=== PATIENT | female | born 1990 | race Caucasian/White ===

== ENCOUNTER 2019-01-21 15:53 | Emergency (ER) | payer MEDICARE, MEDICAID ==
[~2019-01-21] VITALS: Ht 160 cm; Wt 73.6 kg
--- NOTE | 2019-01-21 16:15 | NUR ---
Pt arrives via EMS from home. She was placed on 5150 by county worker. Father stated she has not been eating or caring for herself lately. States she has suffered from depression since age 15 and is currently scooter leung. Has hx of cystic fibrosis and sees [facility] for management of disease. Pt placed in green scrubs and all personal belongings collected. Pt oriented to room and unit. Pt appears very depressed and only answers questions with one word answers.
[2019-01-21 16:36] LABS: CLARITY,URINE TURBID (Clear); COLOR,URINE YELLOW (Yellow); GLUCOSE, URINE NEGATIVE (Neg); KETONES,URINE NEGATIVE (Neg); LEUKOCYTE ESTERASE ,URINE NEGATIVE (Neg); NITRITES, URINE NEGATIVE (Neg); OCCULT BLOOD,URINE NEGATIVE (Neg); PH,URINE 5.5 (4.8-8.0); PROTEIN,URINE NEGATIVE (Neg); URINE HCG NEGATIVE (NEG); UROBILINOGEN,URINE 0.2 E.U/dL (0.2-1.0)
[2019-01-21 16:37] LABS: UA COLLECTION TYPE CLN CATCH MIDSTREAM
[2019-01-21 16:44] LABS: URINE AMPHETAMINE SCREEN NEGATIVE (Neg); URINE BARBITUATE SCREEN NEGATIVE (Neg); URINE BENZODIAZEPINES SCREEN NEGATIVE (Neg); URINE CANNABINOID SCREEN NEGATIVE (Neg); URINE COCAINE SCREEN NEGATIVE (Neg); URINE METHADONE SCREEN NEGATIVE (Neg); URINE OPIATE SCREEN NEGATIVE (Neg); URINE PHENCYCLIDINE SCREEN NEGATIVE (Neg)
--- NOTE | 2019-01-21 16:44 | NUR ---
Telepsych called. Pt placed in queue.
[2019-01-21] MEDS ORDERED: CETI-102 PO (16:51)
[2019-01-21] MEDS ORDERED: DOCU-28 PO (16:51)
[2019-01-21] MEDS ORDERED: ALB0.5UD IH (16:51)
[2019-01-21] MEDS ORDERED: DORN1SOL (16:51)
[2019-01-21] MEDS ORDERED: ESCI10TA PO (16:51)
--- NOTE | 2019-01-21 16:51 | NUR ---
Per dry charge process attendantISAAC Huitron, a nurse from IR will be coming down shortly and we will see if they can access pts port.
[2019-01-21 16:57] LABS: MUCUS STRANDS MANY /LPF (Neg); SQUAMOUS EPITHELIAL CELL,UR MANY /LPF (FEW)
[2019-01-21 16:58] LABS: BACTERIA,URINE FEW /HPF (Neg); RBC,URINE 0-2 /HPF (0-2); WBC,URINE 0-4 /HPF (0-4)
[2019-01-21] MEDS ORDERED: LIPA1CAP18 PO (17:12)
[2019-01-21] MEDS ORDERED: [UNRECOGNIZED DRUG - CODE] PO (17:12)
[2019-01-21] MEDS ORDERED: MULT1TAB74 PO (17:12)
[2019-01-21] MEDS ORDERED: MULT-978 PO (17:12)
[2019-01-21] MEDS ORDERED: MIRT15TA PO (17:12)
[2019-01-21] MEDS ORDERED: DORN1SOL NEB (17:28)
--- NOTE | 2019-01-21 18:00 | NUR ---
Pt had her telepsych done.
--- NOTE | 2019-01-21 18:27 | NUR ---
PER LOS DYSON: OK TO DRAW LABS FROM PORT. USING STERILE TECHNIQUE: ONE ATTEMPT TO DRAW BLOOD UNSUCCESSFUL
--- NOTE | 2019-01-21 18:28 | NUR ---
LAB PHONED TO COME UP AND DRAW PATIENT'S LABS
--- NOTE | 2019-01-21 18:33 | NUR ---
Netta Rizo from [facility] in [facility] called stating she was contacted in regards to the patients admittance here at [facility]. States she can be contacted tomorrow at the clinic at [phone]. Her voicemail is HIPPA compliant and information can be left via voicemail. Should there be any immedite needs, we may contact the Professor Of Graphic Design software security consultant at [phone].
[2019-01-21] MEDS ORDERED: albuterol 2.5 mg/0.5ml nebule NEB PRN (18:45)
[2019-01-21] MEDS ORDERED: albuterol 2.5 MG/3 ML nebule NEB PRN (18:55)
[2019-01-21] MEDS ORDERED: AZIT500T5 PO (19:01)
[2019-01-21 19:10] LABS: BASOPHILS % (AUTO) 0.3 % (0-1); EOSINOPHILS # (AUTO) 0.2 X10'3 (0-0.9); EOSINOPHILS % (AUTO) 1.5 % (0-6); HEMATOCRIT 45.1 % (35.0-45.0); HEMOGLOBIN 14.7 g/dl (12.0-16.0); LYMPHOCYTES # (AUTO) 1.5 X10'3 (1.1-4.8); LYMPHOCYTES % (AUTO) 14.2 % (21-51); MEAN CORPUSCULAR HEMOGLOBIN 26.6 PG (27.0-31.0); MEAN CORPUSCULAR HGB CONC 32.7 g/dL (33.0-36.5); MEAN CORPUSCULAR VOLUME 81.4 FL (78-98); MEAN PLATELET VOLUME 7.2 FL (7.4-10.4); MONOCYTES # (AUTO) 0.6 X10'3 (0-0.9); NEUTROPHILS # (AUTO) 8.3 X10'3 (1.8-7.7); PLATELET COUNT 266 X10'3 (140-440); RED BLOOD COUNT 5.55 X10'6 (4.20-5.60); RED CELL DISTRIBUTION WIDTH 15.7 % (11.5-14.5); WHITE BLOOD COUNT 10.6 X10'3 (4.5-11.0)
[2019-01-21 19:11] LABS: ALANINE AMINOTRANSFERASE 64 U/L (12-78); ALBUMIN 3.9 G/DL (3.4-5.0); ALBUMIN/GLOBULIN RATIO 0.9 (1.1-1.5); ALKALINE PHOSPHATASE 198 IU/L (46-116); ANION GAP 9 (8-16); ASPARTATE AMINO TRANSFERASE 33 U/L (10-37); BILIRUBIN,TOTAL 0.3 MG/DL (0.1-1.0); BLOOD UREA NITROGEN 14 MG/DL (7-18); BUN/CREATININE RATIO 21.5 (6.6-38.0); CHLORIDE 103 MMOL/L (99-107); CREATININE 0.65 MG/DL (0.40-0.90); GLUCOSE 80 MG/DL (70-104); POTASSIUM 3.5 MMOL/L (3.5-5.1); SODIUM 139 MMOL/L (135-145); TOTAL CARBON DIOXIDE 27.1 MMOL/L (24-32); TOTAL PROTEIN 8.3 G/DL (6.4-8.2); eGFR > 90 ML/MIN
--- NOTE | 2019-01-21 19:13 | NUR ---
Home medications checked into pharmacy. Patient given plastic mouth piece that she wears at night with plastic pink case for storage from belongings. Patient has a bedside.
[2019-01-21 19:20] LABS: ETHANOL < 0.010 GM/DL (0.0-0.010)
[2019-01-21] MEDS: Lipase/Protease/Amylase (Creon Dr 36,000 Units Capsule) PO SCH (19:30)
[2019-01-21] MEDS: cetirizine 10mg tablet PO SCH (21:15)
[2019-01-21] MEDS: docusate sod 100mg capsule PO SCH (21:15)
[2019-01-21] MEDS: mirtazapine 15mg tablet PO SCH (21:15)
[2019-01-21] MEDS: IVACAFTOR 150 MG PO SCH (21:23)
--- NOTE | 2019-01-21 23:14 | NUR ---
Packet sent to [facility]. Telephone to confirm packet had arrived, but office had closed for the evening.
--- NOTE | 2019-01-22 00:36 | NUR ---
Covering for RN Lunch break: Patient is resting in bed with eyes closed. Resp are even and unlabored. Appearing to sleep comfortably without concerns or issues noted. Will continue to monitor.
[2019-01-22] MEDS: [UNRECOGNIZED DRUG - OTHER] IH SCH (08:00)
[2019-01-22] MEDS ORDERED: non-formulary drug (Multivitamins 1 TAB) PO SCH (08:00)
[2019-01-22] MEDS: IVACAFTOR 150 MG PO SCH ×2 (08:14→20:28)
[2019-01-22] MEDS: docusate sod 100mg capsule PO SCH ×2 (08:14→20:27)
[2019-01-22] MEDS: Lipase/Protease/Amylase (Creon Dr 36,000 Units Capsule) PO SCH ×3 (08:14→17:33)
[2019-01-22] MEDS: multivitamins, therapeutics tablet PO SCH (08:15)
--- NOTE | 2019-01-22 08:23 | NUR ---
Woke up to eat only few bites of breakfast.
--- NOTE | 2019-01-22 12:00 | NUR ---
Spoke to respiratory therapist Edita who stated this hospital does not have the appropriate vest or treatment needed for this pts cystic fibrosis.
--- NOTE | 2019-01-22 14:11 | NUR ---
Encouraged pt to get up and brush her teeth which she did. Warm shower cap given to pt so she could wash her hair, but she refused. Linens changed.
--- NOTE | 2019-01-22 18:16 | NUR ---
Received report from ISAAC Aguirre. Patient resting comfortably. Addendum: 01/22/19 at 1825 by REENA Swati montgomery.
--- NOTE | 2019-01-22 18:24 | NUR ---
Patient resting comfortably
[2019-01-22] MEDS: mirtazapine 15mg tablet PO SCH (20:27)
[2019-01-22] MEDS: cetirizine 10mg tablet PO SCH (20:28)
[2019-01-23 05:58] VITALS: BP 104/76
--- NOTE | 2019-01-23 06:30 | NUR ---
RN recieved report on pt. pt. is sleeping in bed.
[2019-01-23] MEDS: Lipase/Protease/Amylase (Creon Dr 36,000 Units Capsule) PO SCH ×2 (07:55→12:55)
[2019-01-23] MEDS: [UNRECOGNIZED DRUG - OTHER] IH SCH (08:00)
[2019-01-23] MEDS: multivitamins, therapeutics tablet PO SCH (08:10)
[2019-01-23] MEDS: IVACAFTOR 150 MG PO SCH (08:10)
[2019-01-23] MEDS: docusate sod 100mg capsule PO SCH (08:11)
--- NOTE | 2019-01-23 08:30 | NUR ---
Pt. took AM medications and is up for breakfast. Pt. reports she does not want to use her chest compressor after eating because it makes her feel nauseated. Pt. denies SI.
--- NOTE | 2019-01-23 10:30 | NUR ---
RN asked if pt. was ready for her breathing treatment this AM, pt. reports that she is still too full from breakfast. RN spoke with pt.'s father who reports that pt.'s optimal schedule is to have her breathing treatment, then compressor, then eat.
--- NOTE | 2019-01-23 11:30 | NUR ---
Pt. agitated, saying that she overheard staff talking poorly about her. Pt. states she is having a panic attack. RN listened to pt. and did deep breathing with the pt. RN recieved PRN order for Zyprexa 10mg po. Pt. refused medication. Pt. was able to relax on her own.
--- NOTE | 2019-01-23 12:19 | NUR ---
Call placed to Dr. Avila for pulmonary consult.
--- NOTE | 2019-01-23 12:22 | NUR ---
Message left for Dr. Avila
[2019-01-23] MEDS ORDERED: olanzapine 10mg tablet PO SCH (12:25)
--- NOTE | 2019-01-23 13:00 | NUR ---
Pt. recieved her albuterol along with her percussive vest treatment. RN informed by Pharmacy that pt.'s Creon jaison run out after today. RN contacted pt.'s father and informed him of need for medication, father to bring in more medication.
--- NOTE | 2019-01-23 13:53 | NUR ---
Message left for Dr. Bustillos
--- NOTE | 2019-01-23 13:53 | NUR ---
Call placed to Dr. Bustillos
--- NOTE | 2019-01-23 15:00 | NUR ---
Pt. ate 50% of her lunch. RN informed by pt.'s father that her pulmizyme was not discontinued actually and that pt. normally takes it before dinner. RN contacted pharmacy to reschedule pulmizyme for before dinner. Pt. is resting in her bed.
--- NOTE | 2019-01-23 16:52 | NUR ---
Pt. accepted for center for behavioral health by dr. lopes. Transported via [facility] with all her personal posessions with unit staff at this time.
[2019-01-23] MEDS ORDERED: [UNRECOGNIZED DRUG - OTHER] IH SCH (17:00)
[2019-01-23] MEDS ORDERED: MULT-35 PO (22:40)
[2019-01-23] MEDS ORDERED: MULT-978 PO (22:40)
== END 2019-01-23 16:45 ==
LOC: ER 15:55
DX: F32.9 Major depressive disorder, single episode, unspecified (principal); E84.9 Cystic fibrosis, unspecified; Z79.899 Other long term (current) drug therapy
CPT/HCPCS: 36415; 80053; 80305; 80320; 81001; 81025; 84443; 85025; 94640; 94760; 99284; 99285; J7611

== ENCOUNTER 2019-01-23 15:57 | Inpatient (IN) | payer MEDICARE, MEDICAID | END 2019-01-30 17:18 | disposition home or self-care (01) | LOC: ADULT MH 15:57 | DX: R45.851 Suicidal ideations (principal); F32.9 Major depressive disorder, single episode, unspecified ==

== ENCOUNTER 2019-04-22 17:39 | Emergency (ER) | payer MEDICARE, MEDICAID ==
[~2019-04-22] VITALS: Ht 160 cm; Wt 77.0 kg
[~2019-04-22 17:39] MED LIST: ALB0.5UD IH; AZIT500T5 PO; CETI-102 PO; DOCU-28 PO; DORN1SOL NEB; ESCI10TA PO; LIPA1CAP18 PO; MIRT15TA8 PO; MULT-35 PO; MULT-978 PO; MULT1TAB74 PO; TRAZ-251 PO; [UNRECOGNIZED DRUG - CODE] PO
[2019-04-22 20:02] LABS: BASOPHILS # (AUTO) 0.1 X10'3 (0-0.2); BASOPHILS % (AUTO) 0.5 % (0-1); EOSINOPHILS # (AUTO) 0.3 X10'3 (0-0.9); HEMATOCRIT 42.1 % (35.0-45.0); HEMOGLOBIN 14.1 g/dl (12.0-16.0); LYMPHOCYTES # (AUTO) 1.7 X10'3 (1.1-4.8); LYMPHOCYTES % (AUTO) 13.1 % (21-51); MEAN CORPUSCULAR HEMOGLOBIN 26.7 PG (27.0-31.0); MEAN CORPUSCULAR HGB CONC 33.5 g/dL (33.0-36.5); MEAN CORPUSCULAR VOLUME 79.7 FL (78-98); MEAN PLATELET VOLUME 7.1 FL (7.4-10.4); MONOCYTES # (AUTO) 0.9 X10'3 (0-0.9); MONOCYTES % (AUTO) 7.1 % (2-12); NEUTROPHILS # (AUTO) 9.8 X10'3 (1.8-7.7); NEUTROPHILS % (AUTO) 77.3 % (42-75); PLATELET COUNT 279 X10'3 (140-440); RED BLOOD COUNT 5.28 X10'6 (4.20-5.60); RED CELL DISTRIBUTION WIDTH 14.9 % (11.5-14.5); WHITE BLOOD COUNT 12.7 X10'3 (4.5-11.0)
[2019-04-22 20:12] LABS: ALANINE AMINOTRANSFERASE 35 U/L (12-78); ALBUMIN 3.9 G/DL (3.4-5.0); ALBUMIN/GLOBULIN RATIO 0.9 (1.1-1.5); ALKALINE PHOSPHATASE 190 IU/L (46-116); ANION GAP 7 (8-16); ASPARTATE AMINO TRANSFERASE 19 U/L (10-37); BILIRUBIN,TOTAL 0.4 MG/DL (0.1-1.0); BLOOD UREA NITROGEN 15 MG/DL (7-18); BUN/CREATININE RATIO 23.8 (6.6-38.0); CALCIUM 8.9 MG/DL (8.5-10.1); CHLORIDE 103 MMOL/L (99-107); CREATININE 0.63 MG/DL (0.40-0.90); GLUCOSE 79 MG/DL (70-104); POTASSIUM 3.8 MMOL/L (3.5-5.1); SODIUM 138 MMOL/L (135-145); TOTAL CARBON DIOXIDE 27.6 MMOL/L (24-32); TOTAL PROTEIN 8.3 G/DL (6.4-8.2); eGFR > 90 ML/MIN
--- NOTE | 2019-04-22 20:16 | NUR ---
changed pt into green scrubs. charted all belongings on belongings log. locked in lockers.
[2019-04-22 20:21] LABS: ETHANOL < 0.010 GM/DL (0.0-0.010)
[2019-04-22] MEDS ORDERED: albuterol 2.5 MG/3 ML nebule NEB PRN (21:00)
--- NOTE | 2019-04-22 21:00 | NUR ---
Pt resting quietly, respirations normal, no s/s of distress.
[2019-04-22] MEDS: mirtazapine 15mg tablet PO SCH (21:29)
[2019-04-22] MEDS: cetirizine 10mg tablet PO SCH (21:29)
--- NOTE | 2019-04-22 22:06 | NUR ---
Pt resting quietly, respirations normal, no s/s of distress.
--- NOTE | 2019-04-22 23:50 | NUR ---
Pt resting quietly, respirations normal, no s/s of distress.
--- NOTE | 2019-04-23 01:28 | NUR ---
Pt resting quietly, respirations normal, no s/s of distress.
--- NOTE | 2019-04-23 03:01 | NUR ---
Pt resting quietly, respirations normal, no s/s of distress.
--- NOTE | 2019-04-23 04:04 | NUR ---
Pt resting quietly, respirations normal, no s/s of distress.
--- NOTE | 2019-04-23 04:52 | NUR ---
Pt resting quietly, respirations normal, no s/s of distress.
[2019-04-23] MEDS: Lipase/Protease/Amylase (Creon Dr 36,000 Units Capsule) PO SCH ×3 (07:00→16:48)
--- NOTE | 2019-04-23 07:00 | NUR ---
Pt sleeping. No s/s of distress noted.
[2019-04-23] MEDS: MINS PO SCH ×2 (08:00→20:00)
[2019-04-23] MEDS: MULTIVITS CA MINERALS PO SCH (08:00)
[2019-04-23] MEDS: IRON PO SCH (08:00)
[2019-04-23] MEDS: MULTIVITS PO SCH ×2 (08:00→20:00)
[2019-04-23] MEDS: [UNRECOGNIZED DRUG - OTHER] PO SCH ×2 (08:00→20:00)
[2019-04-23] MEDS: COENZYME Q10 PO SCH ×2 (08:00→20:00)
[2019-04-23] MEDS: [UNRECOGNIZED DRUG - OTHER] PO SCH (08:00)
[2019-04-23] MEDS: multivitamins, therapeutics tablet PO SCH (08:36)
[2019-04-23] MEDS: docusate sod 100mg capsule PO SCH ×2 (08:37→20:00)
--- NOTE | 2019-04-23 09:00 | NUR ---
Very depressed mood noted. Poor appetite. Asked if mother will be bringing in her meds but she barely answers.
[2019-04-23] MEDS: DORNASE ALFA 1 MG/ML IH SCH (09:24)
[2019-04-23 10:38] LABS: CLARITY,URINE SLIGHTLY CLOUDY (Clear); COLOR,URINE YELLOW (Yellow); GLUCOSE, URINE NEGATIVE (Neg); KETONES,URINE NEGATIVE (Neg); LEUKOCYTE ESTERASE ,URINE TRACE (Neg); NITRITES, URINE NEGATIVE (Neg); OCCULT BLOOD,URINE NEGATIVE (Neg); PROTEIN,URINE NEGATIVE (Neg); UROBILINOGEN,URINE 0.2 E.U/dL (0.2-1.0)
[2019-04-23 10:42] LABS: UA COLLECTION TYPE CLN CATCH MIDSTREAM
[2019-04-23 10:44] LABS: BACTERIA,URINE FEW /HPF (Neg); MUCUS STRANDS FEW /LPF (Neg); RBC,URINE NONE SEEN /HPF (0-2); SQUAMOUS EPITHELIAL CELL,UR MODERATE /LPF (FEW)
--- NOTE | 2019-04-23 11:00 | NUR ---
Pt woke up to go to bathroom and speak with County worker. Now back to sleep.
[2019-04-23 12:19] LABS: URINE AMPHETAMINE SCREEN NEGATIVE (Neg); URINE BARBITUATE SCREEN NEGATIVE (Neg); URINE BENZODIAZEPINES SCREEN NEGATIVE (Neg); URINE CANNABINOID SCREEN NEGATIVE (Neg); URINE COCAINE SCREEN NEGATIVE (Neg); URINE HCG NEGATIVE (NEG); URINE METHADONE SCREEN NEGATIVE (Neg); URINE OPIATE SCREEN NEGATIVE (Neg); URINE PHENCYCLIDINE SCREEN NEGATIVE (Neg)
--- NOTE | 2019-04-23 13:00 | NUR ---
Up eating lunch.
--- NOTE | 2019-04-23 15:00 | NUR ---
Pt up to bathroom. Now back to bed. No eye contact, no desire to engage in conversation. States feels like harming herself "all the time".
--- NOTE | 2019-04-23 17:00 | NUR ---
Sitting up in bed without complaints.
--- NOTE | 2019-04-23 20:03 | NUR ---
Nurse to nurse report to Delvin Frederick.
--- NOTE | 2019-04-23 20:08 | NUR ---
The patient is isolating to her bed with her eyes closed. She appears disheveled. She is eating poorly and is reporting that she has had a very poor appetite. Her mood is very depressed, helpless, hopeless, high anxiety and a significant amount of irritability. She is paranoid of the staff and is misinterpreting things that are being said in a negative light and she believes everyone is made at here for being here in the ER. She was upset because the crisis RN from the [facility] asked why her bed was so low and she interpreted that the staff were blaming her way her bed was low and were upset with her because of it and other similiar things that are not based in reality. "They made me feel it was my fault the bed is low" She stated "I have no hope. I don't care about anything...I just want to ....Nothing is going to change..." The patient's mother was called to see if she could bring in some of her home medications and she will be coming later tonight.
--- NOTE | 2019-04-23 21:19 | NUR ---
The patient's father dropped off the patient's home meds and they were sent to the pharmacy. The father denies that the patient is not wellcome back in their home. The father does feels she needs psychiatric stabilization.
[2019-04-23] MEDS: citalopram 20mg tablet PO SCH (21:31)
[2019-04-23] MEDS: mirtazapine 15mg tablet PO SCH (21:31)
[2019-04-23] MEDS: cetirizine 10mg tablet PO SCH (21:34)
--- NOTE | 2019-04-24 00:53 | NUR ---
The patient appears to be sleeping
--- NOTE | 2019-04-24 02:28 | NUR ---
The patient appears to be sleeping
--- NOTE | 2019-04-24 04:20 | NUR ---
The patient appears to be sleeping
[2019-04-24] MEDS: Lipase/Protease/Amylase (Creon Dr 36,000 Units Capsule) PO SCH ×3 (07:00→17:00)
--- NOTE | 2019-04-24 07:00 | NUR ---
Pt sleeping, respirations even and unlabored.
[2019-04-24] MEDS: DORNASE ALFA 1 MG/ML IH SCH (08:00)
[2019-04-24] MEDS: MULTIVITS PO SCH ×2 (08:33→20:44)
[2019-04-24] MEDS: COENZYME Q10 PO SCH ×2 (08:33→20:44)
[2019-04-24] MEDS: multivitamins, therapeutics tablet PO SCH (08:33)
[2019-04-24] MEDS: [UNRECOGNIZED DRUG - OTHER] PO SCH ×2 (08:33→20:44)
[2019-04-24] MEDS: docusate sod 100mg capsule PO SCH ×2 (08:33→20:41)
[2019-04-24] MEDS: IRON PO SCH (08:33)
[2019-04-24] MEDS: [UNRECOGNIZED DRUG - OTHER] PO SCH (08:33)
[2019-04-24] MEDS: MINS PO SCH ×2 (08:33→20:44)
[2019-04-24] MEDS: MULTIVITS CA MINERALS PO SCH (08:33)
--- NOTE | 2019-04-24 09:32 | NUR ---
pt is in bed on left side. calm, no s/s of distress observed, her home meds are not avail to give. family has not brought them in
--- NOTE | 2019-04-24 10:26 | NUR ---
pt appears to be sleeping on her left side, equal, regular breathing present, no s/s of distress
--- NOTE | 2019-04-24 11:25 | NUR ---
pt is in bed on left side, no s/s of distress observed
--- NOTE | 2019-04-24 12:37 | NUR ---
pt is in bed on left side, no s/s of distress observed, regular breathing present
--- NOTE | 2019-04-24 13:05 | NUR ---
pt is sitting up in bed, she is eating her lunch...butter. calm, no distress obderved
--- NOTE | 2019-04-24 14:05 | NUR ---
pt is in bed on right side, no s/s of distress observed
--- NOTE | 2019-04-24 15:19 | NUR ---
pt is in bed on right side, no s/s of distress, regular breathing present
--- NOTE | 2019-04-24 16:39 | NUR ---
PT IS IN BED, AWAKE, RESPONDS TO QUESTIONS, NO S/S OF DISTRESS
--- NOTE | 2019-04-24 17:58 | NUR ---
CALLED AND SPOKE TO DR MEDEIROS HE WILL COME DOWN AND SPEAK TO PT
--- NOTE | 2019-04-24 18:00 | NUR ---
Patient is getting VS taken by tech at this time.
--- NOTE | 2019-04-24 19:13 | NUR ---
Patient is lying on right side resting.
[2019-04-24] MEDS: citalopram 20mg tablet PO SCH (20:40)
[2019-04-24] MEDS: mirtazapine 15mg tablet PO SCH (20:41)
[2019-04-24] MEDS: cetirizine 10mg tablet PO SCH (20:41)
--- NOTE | 2019-04-24 20:50 | NUR ---
pt just took all her medications, no problems or agitation noted
--- NOTE | 2019-04-24 21:03 | NUR ---
Patient got up and went to the bathroom. Lying on right side now resting.
[2019-04-25 05:48] VITALS: BP 110/75
--- NOTE | 2019-04-25 06:30 | NUR ---
Patient sleeping, no distress observed. Continue to monitor.
[2019-04-25] MEDS: IRON PO SCH (08:00)
[2019-04-25] MEDS: [UNRECOGNIZED DRUG - OTHER] PO SCH (08:00)
[2019-04-25] MEDS: MULTIVITS CA MINERALS PO SCH (08:00)
--- NOTE | 2019-04-25 08:10 | NUR ---
Patient eating breakfast. No distress observed. Continue to monitor.
[2019-04-25] MEDS: Lipase/Protease/Amylase (Creon Dr 36,000 Units Capsule) PO SCH (08:42)
[2019-04-25] MEDS: multivitamins, therapeutics tablet PO SCH (08:56)
[2019-04-25] MEDS: MULTIVITS PO SCH (08:57)
[2019-04-25] MEDS: docusate sod 100mg capsule PO SCH (08:57)
[2019-04-25] MEDS: COENZYME Q10 PO SCH (08:57)
[2019-04-25] MEDS: MINS PO SCH (08:57)
[2019-04-25] MEDS: [UNRECOGNIZED DRUG - OTHER] PO SCH (08:57)
--- NOTE | 2019-04-25 10:12 | NUR ---
Patient awake and alert and c/o severe depression and feeling suicidal. No plan at this time. Continue to monitor.
[2019-04-25] MEDS: DORNASE ALFA 1 MG/ML IH SCH (10:30)
--- NOTE | 2019-04-25 12:25 | NUR ---
Patient sleeping on right side. No distress observed. Continue to monitor.
[2019-04-25] MEDS ORDERED: PROTEASE PO SCH (12:30)
[2019-04-25] MEDS ORDERED: LIPASE PO SCH (12:30)
[2019-04-25] MEDS ORDERED: AMYLASE PO SCH (12:30)
--- NOTE | 2019-04-25 14:00 | NUR ---
Anjana Santiago from [facility] signing paperwork with patient. No distress observed.
[2019-04-25] MEDS ORDERED: citalopram 20mg tablet PO SCH (21:00)
== END 2019-04-25 14:21 | disposition home or self-care (01) ==
LOC: ER 17:40
DX: F33.9 Major depressive disorder, recurrent, unspecified (principal); E84.9 Cystic fibrosis, unspecified; Z79.899 Other long term (current) drug therapy
CPT/HCPCS: 36415; 80053; 80305; 80320; 81001; 81025; 84443; 85025; 94760; 99285

== ENCOUNTER 2020-11-25 17:53 | Emergency (ER) | payer MEDICARE, MEDICAID ==
[~2020-11-25] VITALS: Ht 160 cm; Wt 72.7 kg
[~2020-11-25 17:53] MED LIST changes: -AZIT500T5 PO; -CETI-102 PO; +CETI-90 PO; -ESCI10TA PO; +MULT-620 PO; -MULT1TAB74 PO; -TRAZ-251 PO; +VENL150T3 PO
--- NOTE | 2020-11-25 18:51 | NUR ---
back from cxr via wc, patient reports that her sob is the same as when she first arrived
--- NOTE | 2020-11-25 18:59 | NUR ---
DISCUSSED PATIENT WITH DR DIAS: PATIENT OUTSIDE IN RAP: OK TO COLLECT RAPID FLU SWAB AND TO HOLD OFF ON THE COVID SWAB TO SEE IF SHE WILL BE ADMITTED. LABS PENDING. HE WILL CALL HER DR AT [facility]: EITHER DR BROOKE ANAYA AND DR EV OTERO
--- NOTE | 2020-11-25 19:01 | NUR ---
PATIENT WILL BE ROOMED SOON A ROOM IN THE ER IS AVAILABLE
--- NOTE | 2020-11-25 19:11 | NUR ---
PATIENT HAS PORT IN HER RIGHT UPPER CHEST THAT WAS LST ACCESSED 2 MONTHS AGO
[2020-11-25] MEDS ORDERED: normal saline 1000ml 1,000 ML IV ONE (19:25)
[2020-11-25] MEDS ORDERED: iohexol 350MG/ML 100ml bottle IV ONE (19:28)
[2020-11-25 19:49] LABS: BASOPHILS # (AUTO) 0.1 X10'3 (0-0.2); BASOPHILS % (AUTO) 0.8 % (0-1); EOSINOPHILS # (AUTO) 0.2 X10'3 (0-0.9); EOSINOPHILS % (AUTO) 2.2 % (0-6); HEMATOCRIT 38.7 % (35.0-45.0); HEMOGLOBIN 12.5 g/dl (12.0-16.0); LYMPHOCYTES # (AUTO) 1.8 X10'3 (1.1-4.8); LYMPHOCYTES % (AUTO) 22.1 % (21-51); MEAN CORPUSCULAR HGB CONC 32.3 g/dL (33.0-36.5); MEAN CORPUSCULAR VOLUME 77.4 FL (78-98); MEAN PLATELET VOLUME 6.6 FL (7.4-10.4); MONOCYTES % (AUTO) 12.6 % (2-12); NEUTROPHILS # (AUTO) 5.1 X10'3 (1.8-7.7); NEUTROPHILS % (AUTO) 62.3 % (42-75); PLATELET COUNT 334 X10'3 (140-440); RED BLOOD COUNT 4.99 X10'6 (4.20-5.60); RED CELL DISTRIBUTION WIDTH 15.7 % (11.5-14.5); WHITE BLOOD COUNT 8.1 X10'3 (4.5-11.0)
[2020-11-25 20:04] LABS: ALANINE AMINOTRANSFERASE 25 U/L (12-78); ALBUMIN 3.3 G/DL (3.4-5.0); ALBUMIN/GLOBULIN RATIO 0.7 (1.1-1.5); ALKALINE PHOSPHATASE 180 IU/L (46-116); ANION GAP 7 (8-16); ASPARTATE AMINO TRANSFERASE 12 U/L (10-37); BILIRUBIN,TOTAL 0.2 MG/DL (0.1-1.0); BLOOD UREA NITROGEN 15 MG/DL (7-18); BUN/CREATININE RATIO 23.1 (6.6-38.0); CALCIUM 8.5 MG/DL (8.5-10.1); CHLORIDE 104 MMOL/L (99-107); CREATININE 0.65 MG/DL (0.40-0.90); GLUCOSE 130 MG/DL (70-104); SODIUM 140 MMOL/L (135-145); TOTAL CARBON DIOXIDE 28.6 MMOL/L (24-32); TOTAL PROTEIN 7.9 G/DL (6.4-8.2); eGFR > 90 ML/MIN
[2020-11-25 20:29] LABS: C-REACTIVE PROTEIN 3.82 MG/DL (0.0-0.5); LACTATE DEHYDROGENASE 166 U/L (81-234)
[2020-11-25 20:37] VITALS: BP 107/78
== END 2020-11-25 22:28 | disposition home or self-care (01) ==
LOC: ER 17:53
DX: R06.02 Shortness of breath (principal); R19.7 Diarrhea, unspecified; R09.89 Other specified symptoms and signs involving the circulatory and respiratory systems; Z20.828 Contact with and (suspected) exposure to other viral communicable diseases; F32.9 Major depressive disorder, single episode, unspecified; Z79.899 Other long term (current) drug therapy
CPT/HCPCS: 36415; 71046; 71275; 80053; 83605; 83615; 83880; 84145; 85025; 86140; 87040; 87502; 87503; 87635; 96360; 99285; J7030; Q9967

== ENCOUNTER 2021-06-23 07:37 | Emergency (ER) | payer MEDICARE, MEDICAID ==
[~2021-06-23] VITALS: Ht 160 cm; Wt 80.8 kg
[~2021-06-23 07:37] MED LIST changes: +MIRT-87 PO; -MIRT15TA8 PO
--- NOTE | 2021-06-23 11:00 | NUR ---
PT IS 31 YO FEMALE BIB PARENT WITH SUICIAL THOUGHTS "I JUST DON'T REALLY WANT TO BE HERE ANYMORE", PT DENIES ANY PLAN FOR SUICIDE, PT HAS ATTEMPTED SUICIDE 3X IN THE PAST BY STARVING SELF FOR 3-4 DAYS, ATTEMPTED TO HANG SELF APPROX 2 YEARS AGO WHILE HOSPITALIZED AT [facility] FOR LUNG PROBLEM AND 3RD ATTEMPT WAS DURING STAY AT [facility] SHE STUFFED PAPER ITEMS IN NOSE AND THROAT, PT DID CONTRACT FOR SAFETY "I WON'T STUFF PAPER DOWN MY THROAT HERE...I KNOW YOU GUYS WILL HAVE LEECH LAKE EYES ON ME", PT DOES NEED TISSUE AT BEDSIDE SHE HAS CYSTIC FIBROSIS, PT ALSO HAS SPECIAL PILLOW TO HELP WITH NECK SUPPORT AND FATHER IS BRINGING PRESSURE CHEST VEST FOR PT TO USE. PT STATED SHE HAS BEEN FEELING DEPRESSED SINCE JANUARY 2020--THERE HAVE BEEN 4 DEATHS IN HER FAMILY, HER FRIENDS HEALTH ALSO HAVE BEEN DECLINING HEALTH, PER HER DAD PT IS ONLY DOING CYSTIC FIBROSIS TREATMENT EVERY 1-3 DAYS, EATING ONLY ONE MEAL A DAY. AND FAMILY STRESS OF PLACING HER SPECIAL NEEDS SISTER IN A SNF 2 MONTHS AGO, SISTER WAS VERBALLY AND PHYICALLY ABUSIVE
--- NOTE | 2021-06-23 12:00 | NUR ---
PT IS DIFFICULT TO DRAW BLOOD FROM, 3RD IMAGING SYSTEM ADMINISTRATOR AT BEDSIDE, PT DOES HAVE A PORT, LAST ACCESSED 2 MONTHS AGO,
[2021-06-23 12:21] LABS: BASOPHILS # (AUTO) 0.1 X10'3 (0-0.2); BASOPHILS % (AUTO) 0.5 % (0-1); EOSINOPHILS # (AUTO) 0.1 X10'3 (0-0.9); EOSINOPHILS % (AUTO) 1.2 % (0-6); HEMATOCRIT 41.1 % (35.0-45.0); HEMOGLOBIN 13.4 g/dl (12.0-16.0); LYMPHOCYTES # (AUTO) 1.7 X10'3 (1.1-4.8); LYMPHOCYTES % (AUTO) 16.9 % (21-51); MEAN CORPUSCULAR HEMOGLOBIN 24.7 PG (27.0-31.0); MEAN CORPUSCULAR HGB CONC 32.5 g/dL (33.0-36.5); MEAN CORPUSCULAR VOLUME 75.9 FL (78-98); MEAN PLATELET VOLUME 6.7 FL (7.4-10.4); MONOCYTES # (AUTO) 0.8 X10'3 (0-0.9); MONOCYTES % (AUTO) 7.5 % (2-12); NEUTROPHILS # (AUTO) 7.5 X10'3 (1.8-7.7); NEUTROPHILS % (AUTO) 73.9 % (42-75); PLATELET COUNT 353 X10'3 (140-440); RED BLOOD COUNT 5.42 X10'6 (4.20-5.60); RED CELL DISTRIBUTION WIDTH 16.9 % (11.5-14.5); WHITE BLOOD COUNT 10.2 X10'3 (4.5-11.0)
[2021-06-23 12:34] LABS: ALANINE AMINOTRANSFERASE 35 U/L (12-78); ALBUMIN 3.8 G/DL (3.4-5.0); ALBUMIN/GLOBULIN RATIO 0.8 (1.1-1.5); ALKALINE PHOSPHATASE 170 IU/L (46-116); ANION GAP 9 (8-16); ASPARTATE AMINO TRANSFERASE 21 U/L (10-37); BILIRUBIN,TOTAL 0.2 MG/DL (0.1-1.0); BLOOD UREA NITROGEN 10 MG/DL (7-18); BUN/CREATININE RATIO 16.7 (6.6-38.0); CALCIUM 8.7 MG/DL (8.5-10.1); CHLORIDE 105 MMOL/L (99-107); GLUCOSE 97 MG/DL (70-104); POTASSIUM 3.9 MMOL/L (3.5-5.1); SODIUM 143 MMOL/L (135-145); TOTAL PROTEIN 8.4 G/DL (6.4-8.2); eGFR > 90 ML/MIN
[2021-06-23 12:43] LABS: ETHANOL < 0.010 GM/DL (0.0-0.010)
[2021-06-23 12:54] LABS: CLARITY,URINE SLIGHTLY CLOUDY (Clear); COLOR,URINE YELLOW (Yellow); GLUCOSE, URINE NEGATIVE (Neg); KETONES,URINE NEGATIVE (Neg); LEUKOCYTE ESTERASE ,URINE SMALL (Neg); NITRITES, URINE NEGATIVE (Neg); OCCULT BLOOD,URINE NEGATIVE (Neg); PH,URINE 5.5 (4.8-8.0); PROTEIN,URINE NEGATIVE (Neg); URINE HCG NEGATIVE (NEG); UROBILINOGEN,URINE 0.2 E.U/dL (0.2-1.0)
--- NOTE | 2021-06-23 12:55 | NUR ---
PT NEEDS CYSTIC FIBROSIS DIET OF HIGH CALORIE, HIGH PROTEIN. PT IS ASKING FOR SNACK, GAVE HER JELLO, SALTINES AND OJ FOR NOW, PT CORNELL WELL, NO N/V
[2021-06-23 13:00] LABS: UA COLLECTION TYPE CLN CATCH MIDSTREAM
[2021-06-23 13:02] LABS: SQUAMOUS EPITHELIAL CELL,UR MANY /LPF (FEW)
[2021-06-23 13:04] LABS: BACTERIA,URINE FEW /HPF (Neg); MUCUS STRANDS NONE SEEN /LPF (Neg)
[2021-06-23 13:05] LABS: RBC,URINE 0-2 /HPF (0-2); URINE AMPHETAMINE SCREEN NEGATIVE (Neg); URINE BARBITUATE SCREEN NEGATIVE (Neg); URINE BENZODIAZEPINES SCREEN NEGATIVE (Neg); URINE CANNABINOID SCREEN NEGATIVE (Neg); URINE COCAINE SCREEN NEGATIVE (Neg); URINE METHADONE SCREEN NEGATIVE (Neg); URINE OPIATE SCREEN NEGATIVE (Neg); URINE PHENCYCLIDINE SCREEN NEGATIVE (Neg)
[2021-06-23 13:08] LABS: WBC CLUMPS,URINE FEW /HPF (NEGATIVE); YEAST FEW /HPF (NEGATIVE)
[2021-06-23 13:09] LABS: WBC,URINE 0-4 /HPF (0-4)
--- NOTE | 2021-06-23 13:26 | NUR ---
PT IS EATING LUNCH
--- NOTE | 2021-06-23 14:02 | NUR ---
PACKET FAXED TO [facility]
--- NOTE | 2021-06-23 14:36 | NUR ---
CALLED [facility] OFFICE, THEY HAVE NOT RECEIVED PACKETS, THEY SAID CALL BACK IN 15 TO 20 MINUTES THE FAX MACHINE WAS SENDING SOMETHING
[2021-06-23] MEDS ORDERED: MINO100T PO (14:50)
[2021-06-23] MEDS ORDERED: [UNRECOGNIZED DRUG - CODE] PO (14:50)
--- NOTE | 2021-06-23 14:59 | NUR ---
[facility] OFFICE HAS NOT RECEIVED PACKET, PACKET REFAXED
[2021-06-23] MEDS ORDERED: albuterol 2.5 MG/3 ML nebule NEB PRN (15:55)
--- NOTE | 2021-06-23 19:00 | NUR ---
[facility] has evaluated the patient and she is on a 5150 hold.
[2021-06-23] MEDS: VIT D3 PO SCH (20:00)
[2021-06-23] MEDS: PEDI MULTIVIT PO SCH (20:00)
[2021-06-23] MEDS: VIT K PO SCH (20:00)
--- NOTE | 2021-06-23 20:00 | NUR ---
The patient has been isolating on her bed. She is childlike at times. She has refused to have her cystic fibrosis device. She stated that she has been sleeping poorly during the night. When asked if she was suicidal she stated that she was but refused to state a plan but stated, "I don't want to tell you because then it won't work" Psychotic symptoms are denied.
[2021-06-23] MEDS: mirtazapine 15mg tablet PO SCH (20:59)
[2021-06-23] MEDS: docusate sod 100mg capsule PO SCH (20:59)
[2021-06-23] MEDS: cetirizine 10mg tablet PO SCH (20:59)
[2021-06-23] MEDS: PROTEASE PO SCH (21:00)
[2021-06-23] MEDS: LIPASE PO SCH (21:00)
[2021-06-23] MEDS: AMYLASE PO SCH (21:00)
[2021-06-23] MEDS: IVACAFTOR 150 MG PO SCH (21:00)
--- NOTE | 2021-06-23 22:16 | NUR ---
The patient appears to be sleeping
--- NOTE | 2021-06-24 01:44 | NUR ---
The patient appears to be sleeping
--- NOTE | 2021-06-24 03:38 | NUR ---
The patient appears to be sleeping
--- NOTE | 2021-06-24 04:46 | NUR ---
The patient appears to be sleeping
--- NOTE | 2021-06-24 06:25 | NUR ---
Patient appears to be sleeping, no sign/sypmtoms of distress.
[2021-06-24] MEDS: MULTIVITS CA MINERALS PO SCH (08:00)
[2021-06-24] MEDS: IRON PO SCH (08:00)
[2021-06-24] MEDS: [UNRECOGNIZED DRUG - OTHER] PO SCH (08:00)
[2021-06-24] MEDS: docusate sod 100mg capsule PO SCH ×2 (09:13→21:03)
[2021-06-24] MEDS: VIT D3 PO SCH ×3 (09:14→21:03)
[2021-06-24] MEDS: VIT K PO SCH ×3 (09:14→21:03)
[2021-06-24] MEDS: LIPASE PO SCH ×3 (09:14→17:09)
[2021-06-24] MEDS: venlafaxine XR 75mg capsule (Q24H) PO SCH (09:14)
[2021-06-24] MEDS: PROTEASE PO SCH ×3 (09:14→17:09)
[2021-06-24] MEDS: PEDI MULTIVIT PO SCH ×3 (09:14→21:03)
[2021-06-24] MEDS: IVACAFTOR 150 MG PO SCH ×2 (09:14→21:03)
[2021-06-24] MEDS: AMYLASE PO SCH ×3 (09:14→17:09)
--- NOTE | 2021-06-24 09:27 | NUR ---
PATIENT TOOK MEDICATIONS WITHOUT ISSUE. STATES SHE IS HAVING SUICIDAL THOUGHTS. REFUSED TO SHARE HER PLAN. CURTAIN OPEN AND PATIENT IN DIRECT LINE OF SIGHT. WILL CONTINUE TO IMPLEMENT SUICIDAL PRECAUTIONS.
--- NOTE | 2021-06-24 09:30 | NUR ---
DAD AT BEDSIDE TO VISIT.
--- NOTE | 2021-06-24 10:02 | NUR ---
Per [facility] patient's packet was sent to [place], awaiting bed placement.
--- NOTE | 2021-06-24 12:34 | NUR ---
Patient appears to be sleeping, no signs/symptoms of distress.
[2021-06-24] MEDS ORDERED: AMYL1CAP56 PO (12:46)
--- NOTE | 2021-06-24 19:09 | NUR ---
The patient has been resting on her bed and ate 100% of her dinner.
--- NOTE | 2021-06-24 19:36 | NUR ---
One to one with the patient who reports continued suicidal thoughts and high anxiety. She is helpless and hopeless about her life and having to live with her parents. She gives no eye contact during the assessment and her head remained down and she kept saying "I'm sorry" at odd times.
[2021-06-24] MEDS: mirtazapine 15mg tablet PO SCH (21:03)
[2021-06-24] MEDS: cetirizine 10mg tablet PO SCH (21:03)
--- NOTE | 2021-06-24 21:13 | NUR ---
The patient is resting quietly on her bed
--- NOTE | 2021-06-24 23:16 | NUR ---
The patient appears to be sleeping
--- NOTE | 2021-06-25 01:17 | NUR ---
The patient appears to be sleeping
--- NOTE | 2021-06-25 02:37 | NUR ---
The patient appears to be sleeping
--- NOTE | 2021-06-25 05:58 | NUR ---
The patient appears to have slept well during the night
[2021-06-25] MEDS: AMYLASE PO SCH ×3 (07:00→17:36)
[2021-06-25] MEDS: PROTEASE PO SCH ×3 (07:00→17:36)
[2021-06-25] MEDS: LIPASE PO SCH ×3 (07:00→17:36)
[2021-06-25] MEDS: MULTIVITS CA MINERALS PO SCH (08:00)
[2021-06-25] MEDS: [UNRECOGNIZED DRUG - OTHER] PO SCH (08:00)
[2021-06-25] MEDS: IRON PO SCH (08:00)
[2021-06-25] MEDS: docusate sod 100mg capsule PO SCH ×2 (08:27→20:53)
[2021-06-25] MEDS: IVACAFTOR 150 MG PO SCH ×2 (08:28→20:53)
[2021-06-25] MEDS: venlafaxine XR 75mg capsule (Q24H) PO SCH (08:28)
[2021-06-25 17:55] VITALS: BP 120/94
--- NOTE | 2021-06-25 18:40 | NUR ---
Patient reclining in bed awake. No distress observed. Continue to monitor.
--- NOTE | 2021-06-25 19:20 | NUR ---
Patient ambulatory, steady gait to BR. No distress observed. Continue to monitor.
--- NOTE | 2021-06-25 20:50 | NUR ---
Patient is awake and alert. Patient states she is still feeling like she doesn't want to live. Patient has depressed affect. Patient is tired and wants to sleep. RN gave patient her night time meds. Patient is supposed to go to [facility] sometime tonight. Continue to monitor.
[2021-06-25] MEDS: mirtazapine 15mg tablet PO SCH (20:52)
[2021-06-25] MEDS: cetirizine 10mg tablet PO SCH (20:53)
[2021-06-25] MEDS: VIT K PO SCH (20:54)
[2021-06-25] MEDS: PEDI MULTIVIT PO SCH (20:54)
[2021-06-25] MEDS: VIT D3 PO SCH (20:54)
== END 2021-06-25 22:02 ==
LOC: ER 07:38
DX: F32.9 Major depressive disorder, single episode, unspecified (principal); Z20.822 Contact with and (suspected) exposure to COVID-19; E84.9 Cystic fibrosis, unspecified; R62.7 Adult failure to thrive; Z79.899 Other long term (current) drug therapy
CPT/HCPCS: 36415; 80053; 80305; 80320; 81001; 81025; 84443; 85025; 87635; 99285; C9803

== ENCOUNTER 2022-01-04 13:50 | Emergency (ER) | payer MEDICARE, MEDICAID ==
[~2022-01-04] VITALS: Ht 160 cm; Wt 177.0 kg
[~2022-01-04 13:50] MED LIST changes: +AMYL1CAP56 PO; +BUSP15TA3 PO; -LIPA1CAP18 PO; +MINO100T PO; -MULT-620 PO; -MULT-978 PO; +TRAZ-251 PO; +VENL75CA61 PO; +[UNRECOGNIZED DRUG - CODE] PO
[2022-01-04] MEDS ORDERED: acetaminophen 325mg tablet PO STA (14:14)
[2022-01-04] MEDS ORDERED: CefTRIAXone 2gm/D5W 50ml BAG 50 ML IV ONE (14:15)
[2022-01-04] MEDS ORDERED: normal saline 1000ML IV soln IV ONE (14:15)
[2022-01-04] MEDS ORDERED: azithromycin/NS 500mg/250ml 250 ML IV ONE (14:15)
[2022-01-04 15:03] LABS: BASOPHILS % (AUTO) 0.4 % (0-1); EOSINOPHILS # (AUTO) 0.1 X10'3 (0-0.9); EOSINOPHILS % (AUTO) 0.4 % (0-6); HEMATOCRIT 37.4 % (35.0-45.0); HEMOGLOBIN 12.1 g/dl (12.0-16.0); LYMPHOCYTES # (AUTO) 0.9 X10'3 (1.1-4.8); LYMPHOCYTES % (AUTO) 6.9 % (21-51); MEAN CORPUSCULAR HEMOGLOBIN 23.9 PG (27.0-31.0); MEAN CORPUSCULAR HGB CONC 32.4 g/dL (33.0-36.5); MEAN CORPUSCULAR VOLUME 73.8 FL (78-98); MEAN PLATELET VOLUME 6.8 FL (7.4-10.4); MONOCYTES % (AUTO) 7.9 % (2-12); NEUTROPHILS # (AUTO) 10.9 X10'3 (1.8-7.7); NEUTROPHILS % (AUTO) 84.4 % (42-75); PLATELET COUNT 342 X10'3 (140-440); RED BLOOD COUNT 5.07 X10'6 (4.20-5.60); RED CELL DISTRIBUTION WIDTH 16.5 % (11.5-14.5); WHITE BLOOD COUNT 12.9 X10'3 (4.5-11.0)
[2022-01-04 15:18] LABS: ALANINE AMINOTRANSFERASE 31 U/L (12-78); ALBUMIN 3.6 G/DL (3.4-5.0); ALBUMIN/GLOBULIN RATIO 0.9 (1.1-1.5); ANION GAP 10 (8-16); ASPARTATE AMINO TRANSFERASE 18 U/L (10-37); BILIRUBIN,TOTAL 0.4 MG/DL (0.1-1.0); BLOOD UREA NITROGEN 14 MG/DL (7-18); BUN/CREATININE RATIO 24.1 (6.6-38.0); CALCIUM 8.8 MG/DL (8.5-10.1); CHLORIDE 102 MMOL/L (99-107); CREATININE 0.58 MG/DL (0.40-0.90); GLUCOSE 108 MG/DL (70-104); POTASSIUM 4.1 MMOL/L (3.5-5.1); SODIUM 136 MMOL/L (135-145); TOTAL CARBON DIOXIDE 23.6 MMOL/L (24-32); TOTAL PROTEIN 7.8 G/DL (6.4-8.2); eGFR > 90 ML/MIN
--- NOTE | 2022-01-04 15:25 | NUR ---
1451 I AGREE WITH GENERAL ASSESSMENT DOCUMENTATION BY ROYER EDEN.
[2022-01-04] MEDS ORDERED: dexamethasone sod phosphate 10mg/ml inj IV STA (15:37)
[2022-01-04 15:48] VITALS: BP 106/69
[2022-01-04 16:29] LABS: CLARITY,URINE CLEAR (Clear); COLOR,URINE YELLOW (Yellow); GLUCOSE, URINE NEGATIVE (Neg); KETONES,URINE TRACE mg/dl (Neg); LEUKOCYTE ESTERASE ,URINE NEGATIVE (Neg); NITRITES, URINE NEGATIVE (Neg); OCCULT BLOOD,URINE NEGATIVE (Neg); PH,URINE 6.5 (4.8-8.0); PROTEIN,URINE NEGATIVE (Neg); UROBILINOGEN,URINE 0.2 E.U/dL (0.2-1.0)
[2022-01-04] MEDS ORDERED: ipratropium/albuterol 3ml nebule NEB ONE (16:30)
[2022-01-04 16:31] LABS: UA COLLECTION TYPE CLN CATCH MIDSTREAM
--- NOTE | 2022-01-04 17:35 | NUR ---
spoke to ric pts mother and will be here in 15 minutes to talk with saji mcghee
--- NOTE | 2022-01-04 18:05 | NUR ---
PARENTS AT BEDSIDE TALKING WITH LOS ADAMSON.
[2022-01-04] MEDS ORDERED: vancomycin inj 1,000 MG in normal saline 250ml IV soln 250 ML IV ONE (18:10)
[2022-01-04] MEDS ORDERED: vancomycin/NS 1 GM ADD-VANTAGE 250 ML IV ONE (18:12)
== END 2022-01-04 20:12 | disposition home or self-care (01) ==
LOC: ER 13:51
DX: J18.9 Pneumonia, unspecified organism (principal); Z20.822 Contact with and (suspected) exposure to COVID-19; E84.9 Cystic fibrosis, unspecified; Z87.01 Personal history of pneumonia (recurrent); Z79.899 Other long term (current) drug therapy
CPT/HCPCS: 36415; 71045; 80053; 81003; 83605; 84145; 85025; 87040; 87502; 87503; 87635; 93005; 94640; 96365; 96367; 96368; 96375; 99291; C9803; J0456; J0696; J1100; J3370; J7030; 94760; 96366; 99285

== ENCOUNTER 2023-09-15 20:44 | Inpatient (IN) | payer MEDICARE, MEDICAID ==
[~2023-09-15] VITALS: Ht 160 cm; Wt 81.8 kg
--- NOTE | 2023-09-15 23:27 | NUR ---
attempt to tranfer pt to [facility] for ER to ER transfer due to history of cyctic fibrosis via helicopter or fixed wing. per [employer] sql tech, pt unable to fly due to altitude. ground transport arrangment in progress.
--- NOTE | 2023-09-15 23:52 | NUR ---
FATHER - RIKI ARCHANA - [phone]
[2023-09-16] MEDS ORDERED: REMDESIVIR INJ 200 MG in normal saline 100ml IV soln 100 ML IV ONE (00:05)
[2023-09-16] MEDS ORDERED: pantoprazole 40 MG vial IV ONE (00:05)
[2023-09-16] MEDS ORDERED: aspirin 81mg tab.chew PO ONE (00:05)
[2023-09-16] MEDS ORDERED: azithromycin/NS 500mg/250ml 250 ML IV ONE (00:10)
[2023-09-16] MEDS ORDERED: dexamethasone sod phosphate 10mg/ml inj IV ONE (00:15)
--- NOTE | 2023-09-16 01:04 | NUR ---
unable to get ABG stuck x1 without success. Patient refused to be stuck again. Sats 99% Room Air. RN & DR notified
[2023-09-16] MEDS ORDERED: potassium Cl 40MEQ/1/2NS 520ml 520 ML IV PRN (01:20)
[2023-09-16] MEDS ORDERED: acetaminophen 325mg tablet PO PRN (01:20)
[2023-09-16] MEDS ORDERED: magnesium hydroxide 30ml (MOM) UD suspension PO PRN (01:20)
[2023-09-16] MEDS ORDERED: ondansetron/PF 4mg/2ml inj IV PRN (01:20)
[2023-09-16] MEDS ORDERED: magnesium Cl slow-release 64mg tablet PO PRN (01:20)
[2023-09-16] MEDS ORDERED: magnesium 2GM in 50ml NS 50 ML IV PRN (01:20)
[2023-09-16] MEDS ORDERED: HYDROcodone/acetaminophen 5mg/325mg tablet PO PRN (01:20)
[2023-09-16] MEDS ORDERED: potassium Cl 20 mEq SR tablet PO PRN ×2 (01:20)
[2023-09-16] MEDS ORDERED: mag hydrox/Alum hydrox/simeth 30ml oral suspension PO PRN (01:20)
[2023-09-16] MEDS ORDERED: morphine 2 MG/ML inj. syringe IV PRN (01:20)
[2023-09-16] MEDS ORDERED: HYDROcodone/acetaminophen 10/325mg tab PO PRN (01:20)
[2023-09-16] MEDS ORDERED: magnesium 4gm in 100ml NS 100 ML IV PRN (01:20)
[2023-09-16 01:43] LABS: HEMATOCRIT 35.4 % (35.0-45.0); HEMOGLOBIN 11.5 g/dl (12.0-16.0); MEAN CORPUSCULAR HEMOGLOBIN 24.4 PG (27.0-31.0); MEAN CORPUSCULAR HGB CONC 32.4 g/dL (33.0-36.5); MEAN CORPUSCULAR VOLUME 75.5 FL (78-98); MEAN PLATELET VOLUME 6.6 FL (7.4-10.4); PLATELET COUNT 287 X10'3 (140-440); RED BLOOD COUNT 4.69 X10'6 (4.20-5.60); RED CELL DISTRIBUTION WIDTH 16.6 % (11.5-14.5); WHITE BLOOD COUNT 7.2 X10'3 (4.5-11.0)
--- NOTE | 2023-09-16 03:14 | NUR ---
UNABLE TO DRAW LABS, MULTIPLE RN ATTEMPTS. LAB CALLED VERBALIZED UNDERSTANDING. CHARGE NURSE AND PRIMARY NURSE NOTIFIED.
--- NOTE | 2023-09-16 03:40 | NUR ---
SECOND IV PLACED BY CHARGE NURSE VIA ULTRASOUND, BLOOD COLLECTED AND SENT TO LAB.
[2023-09-16 04:10] LABS: BILIRUBIN,URINE NEGATIVE (Neg); CLARITY,URINE CLOUDY (Clear); COLOR,URINE YELLOW (Yellow); GLUCOSE, URINE NEGATIVE (Neg); KETONES,URINE NEGATIVE (Neg); LEUKOCYTE ESTERASE ,URINE SMALL (Neg); NITRITES, URINE NEGATIVE (Neg); OCCULT BLOOD,URINE SMALL (Neg); PROTEIN,URINE NEGATIVE (Neg); UROBILINOGEN,URINE 0.2 E.U/dL (0.2-1.0)
[2023-09-16 04:18] LABS: UA COLLECTION TYPE CLN CATCH MIDSTREAM
[2023-09-16 04:19] LABS: SQUAMOUS EPITHELIAL CELL,UR MANY /LPF (FEW)
[2023-09-16 04:20] LABS: BACTERIA,URINE 3+ /HPF (Neg); RBC,URINE 0-2 /HPF (0-2)
[2023-09-16 04:30] LABS: ALANINE AMINOTRANSFERASE 35 U/L (12-78); ALBUMIN 3.4 G/DL (3.4-5.0); ALBUMIN/GLOBULIN RATIO 0.8 (1.1-1.5); ALKALINE PHOSPHATASE 175 IU/L (46-116); ANION GAP 7 (8-16); ASPARTATE AMINO TRANSFERASE 26 U/L (10-37); BILIRUBIN,TOTAL 0.3 MG/DL (0.1-1.0); BLOOD UREA NITROGEN 11 MG/DL (7-18); CALCIUM 9.5 MG/DL (8.5-10.1); CHLORIDE 102 MMOL/L (99-107); CREATININE 0.55 MG/DL (0.40-0.90); GLUCOSE 119 MG/DL (70-104); POTASSIUM 3.7 MMOL/L (3.5-5.1); SODIUM 139 MMOL/L (135-145); TOTAL CARBON DIOXIDE 29.8 MMOL/L (24-32); TOTAL PROTEIN 7.8 G/DL (6.4-8.2); eCRCL 120 ML/MIN; eGFR > 90 ML/MIN
[2023-09-16 04:45] LABS: C-REACTIVE PROTEIN 1.29 MG/DL (0.0-0.5); LIPASE 6 U/L (16-77); MAGNESIUM 2.3 MG/DL (1.5-2.4); PRO BRAIN NATRIURETIC PEPTIDE 32 PG/ML (0-125)
[2023-09-16 04:48] LABS: FERRITIN 14 NG/ML (8-252); LACTATE DEHYDROGENASE 180 U/L (81-234)
[2023-09-16 04:50] LABS: TOTAL CELLS COUNTED 100
[2023-09-16 04:53] LABS: ANISOCYTOSIS 1+; MICROCYTOSIS 1+; PLATELET ESTIMATE NORMAL
[2023-09-16 04:58] LABS: APTT 30 SECONDS (22-32); D-DIMER 0.58 MG/L FEU (0-0.50); FIBRINOGEN 446 MG/DL (177-424)
[2023-09-16 05:04] LABS: PROTHROMBIN TIME 10.5 SECONDS (9.0-12.0)
[2023-09-16 06:32] VITALS: TEMP 98.4
--- NOTE | 2023-09-16 06:42 | NUR ---
PT REFUSING TO PUT ON HOSPITAL GOWN AT THIS TIME DESPITE BEING EDUCATED ABOUT THE IMPORTANCE OF HAVING A GOWN ON SO THAT STAFF MAY ACCESS HER IN THE EVENT OF AN EMERGENCY.
--- NOTE | 2023-09-16 06:50 | NUR ---
WILIAN OBRIEN ATTEMPTED TO CALL REPORT AND REC RN STILL REC AM REPORT. WILIAN WILL TRY BACK.
--- NOTE | 2023-09-16 07:57 | NUR ---
Patient arrived to floor in no distress on room air and breathing easily. Will continue to monitor for changes.
[2023-09-16 07:58] VITALS: RESP 16; O2SAT 97; O2SAT 98
[2023-09-16] MEDS ORDERED: enoxaparin 40mg/0.4ml syringe SUBCUT SCH (08:00)
[2023-09-16] MEDS ORDERED: K and/or MAG REPLACEMENT MC SCH (08:00)
[2023-09-16] MEDS ORDERED: docusate sod 100mg capsule PO SCH (08:00)
[2023-09-16] MEDS ORDERED: dexamethasone 4mg/ml inj IV SCH (08:00)
[2023-09-16] MEDS: zinc sulfate 220mg capsule PO SCH ×2 (08:00→13:00)
[2023-09-16] MEDS ORDERED: dexamethasone inj 8 MG in normal saline 50ml IV soln 50 ML IV SCH (08:00)
[2023-09-16] MEDS ORDERED: thiamine 100mg tablet PO SCH (08:00)
[2023-09-16] MEDS ORDERED: cholecalciferol (vitamin D3) 1,000 unit (25mcg) tablet PO SCH (08:00)
[2023-09-16 08:30] VITALS: BP 127/89; PULSE 105; RESP 18; O2SAT 100
--- NOTE | 2023-09-16 16:27 | NUR ---
Patient discharged home with mother and educated on importance of following quarantine procedures. Pt not needing oxygen and no sob. IV's dc'd, tele dc'd. All belongings taken from room. No new meds. No meds in pharmacy
[2023-09-16] MEDS ORDERED: REMDESIVIR INJ 100 MG in normal saline 100ml IV soln 100 ML IV SCH (20:00)
[2023-09-16] MEDS ORDERED: azithromycin/NS 500mg/250ml 250 ML IV SCH (23:00)
== END 2023-09-16 16:27 | disposition home or self-care (01) | DRG 177 ==
LOC: ER 20:44 → ED HOLD 09-16 01:23 → PCU 3S 09-16 07:32
PROVIDERS: ADMIT Internal Medicine; ATTEND Family Medicine
PROC: XW033E5 Introduction of Remdesivir Anti-infective into Peripheral Vein, Percutaneous Approach, New Technology Group 5 (ICD-10-PCS; principal; 2023-09-16)
DX: U07.1 COVID-19 (principal); J12.82 Pneumonia due to coronavirus disease 2019; E84.9 Cystic fibrosis, unspecified; J84.10 Pulmonary fibrosis, unspecified; F31.9 Bipolar disorder, unspecified; Z53.20 Procedure and treatment not carried out because of patient's decision for unspecified reasons; Z87.01 Personal history of pneumonia (recurrent); Z82.49 Family history of ischemic heart disease and other diseases of the circulatory system; Z84.89 Family history of other specified conditions; Z79.899 Other long term (current) drug therapy
CPT/HCPCS: 36415; 71045; 80053; 81001; 82728; 83605; 83615; 83690; 83735; 83880; 84100; 84145; 84484; 85007; 85025; 85379; 85384; 85610; 85651; 85730; 86140; 87040; 87502; 87503; 87811; 99285; G0378; J0456; J1100; J1650; J3490

== ENCOUNTER 2024-10-18 12:46 | Emergency (ER) | payer MEDICARE, MEDICAID ==
[~2024-10-18 12:46] MED LIST changes: -MINO100T PO; +MINO100T10 PO
== END 2024-10-18 13:22 | disposition left against medical advice (07) ==
LOC: ER 12:47
DX: F32.A Depression, unspecified (principal); Z53.21 Procedure and treatment not carried out due to patient leaving prior to being seen by health care provider

== ENCOUNTER 2025-06-18 00:36 | Inpatient (IN) | payer MEDICARE, MEDICAID ==
[2025-06-18] VITALS (7 sets, daily range): BP systolic 118–125; BP diastolic 85–90; PULSE 103–115; RESP 16–18; TEMP 98–98.1; O2SAT 96–99
[~2025-06-18] VITALS: Ht 160 cm; Wt 83.1 kg
[~2025-06-18 00:36] MED LIST changes: +BCAR25C PO; +BUS15T PO; +CEFD300C3 PO; -CETI-90 PO; +CETI10CA PO; +DOCU-148 PO; -DOCU-28 PO; +LACT1CAP26 PO; +LEVO750T68 PO; +LINE600T14 PO; -MINO100T10 PO; +MIRT-66 PO; -MIRT-87 PO; +PROP10TA10 PO; -TRAZ-251 PO; +VENL150C58 PO; -VENL150T3 PO; +VENL37.589 PO; -VENL75CA61 PO; +[UNRECOGNIZED DRUG - CODE] PO; +[UNRECOGNIZED DRUG - CODE] PO; -[UNRECOGNIZED DRUG - CODE] PO
[2025-06-18] MEDS ORDERED: LINE600T14 PO (03:11)
[2025-06-18] MEDS ORDERED: PROP10TA10 PO (03:11)
[2025-06-18] MEDS ORDERED: LEVO750T68 PO (03:11)
[2025-06-18] MEDS ORDERED: CEFD300C3 PO (03:17)
[2025-06-18] MEDS ORDERED: magnesium hydroxide 30ml (MOM) UD suspension PO PRN (05:55)
[2025-06-18] MEDS ORDERED: mag hydrox/Alum hydrox/simeth 30ml oral suspension PO PRN (05:55)
--- NOTE | 2025-06-18 09:52 | HISTORY AND PHYSICAL ---
History & Physical - Blank History and Physical CHIEF COMPLIANT SUICIDAL IDEATION HISTORY OF PRESENT ILLNESS Patient presents to the emergency room with thoughts of suicide. Feel she would like to be . Positive history of suicidal ideation CHART REVIEW 35-year-old female with past medical history of cystic fibrosis, major depressive disorder is admitted in the center of Behavioral Health at [facility] for major depressive disorder and suicidal ideation. The patient was recently treated in the hospital for bronchiectasis and hemoptysis secondary to her cystic fibrosis exacerbation. Hourly Sign Language Interpreter at [facility]-Dr. Gloria and the steam and gas turbines assembler at [facility] cystic fibrosis clinic at [place] Dr. Shelton. As per the steam and gas turbines assembler recommendation the patient was treated in the hospital with a broad-spectrum IV antibiotics-IV cefepime, levofloxacin and vancomycin. The Infectious Disease specialist were also consulted during her hospitalization. The patient's condition improved significantly during the hospitalization and was cleared for evaluation by the psychiatrist for admission in the Behavioral Health unit. Her antibiotics were transitioned to p.o. levofloxacin, linezolid and cefdinir to continue for an other five days. She was thus transferred into the behavioral health unit and [facility] yesterday. The patient continues to have a depressed mood and suicidal ideation. Currently denied any concerns or complaints at the moment. She denied any further episodes of hemoptysis, shortness of breath, chest pain, palpitations, nausea or vomiting. ASSESSMENT The patient was interviewed in observation room. The patient was actively standing at nurses station engaging with staff. The patient endorses "I am suicidal and I want to be euthanized." "Just depression and anxiety." The patient endorses her therapist is going to help her get an SS worker and set up her transportation to get her back and forth to her doctor's appointments due to she is unable to drive. Denies HI. Denies AVH. The patient endorses adequate sleep and food intake. The patient is stable no acute distress noted. The patient presents as depressed, suicidal W/ plan, and engaged during session. Per staff report pat ient is medication compliant. Per staff report no abnormal behaviors. Will continue daily assessment and adjusting treatment as needed. Closely monitor behavior and response to medication during hospitalization. Discussed treatment plan with patient. ASE/risks and benefits of chosen treatment. She verbalized understanding and consented to treatment. MENTAL STATUS EXAM APPEARANCE: DISHEVELED.OBESE AVERAGE HEIGHT FEMALE.DISHEVELED LONG BLACK HAIR.WEARING GREEN SCRUBS.WEARING GLASSES. SPEECH: CIRCUMSTANTIAL EYE CONTACT: AVOIDANT AFFECT:FLAT MOOD: DEPRESSED, ANXIOUS ORIENTATION IMPAIRMENT: NONE MEMORY IMPAIRMENT: NONE ATTENTION: FULL HALLUCINATIONS: NONE SUICIDALITY: IDEATION, PLAN DELUSIONS:NONE BEHAVIOR: GUARDED JUDGMENT:POOR INSIGHT: POOR TREATMENT REMERON 30 MG P.O. Q.H.S. BUSPAR 15 MG PO TID Increase VENLAFAXINE 225 MG P.O. DAILY TRAZODONE 50 MG P.O. Q.6 PRN THORAZINE 50 MG P.O. Q.6 PRN BENADRYL 50 MG P.O. Q.6 PRN HYDROXYZINE 50 MG P.O. Q.6 PRN 5150 HOLD-DTS- Patient is unable to formulate a plan to safety due to the severity of their mental illness. We are still titrating medications to an effective dose while maintaining a therapeutic environment to prevent decompensation and readmission. Monitoring by Staff, Milieu, Group, and Individual counseling as needed -- According to the Victor Suicide Assessment the above named patient is on Q15 MINUTE CHECKS. Total time spent 120 minutes on REVIEW OF Clinical notes [X ] RN notes [X] PCT documentation [X] SW notes Labs [ X] Medications [X] Care trends/care activity [X] Vitals [X] DISCUSSION WITH classroom coordinator [X] Staff SW Treatment Team [X] DISCHARGE UNSURE AT THIS TIME. DISCHARGE HOME ONCE STABLE. PER AUTOMOBILE ACCESSORIES SALESPERSON'S NOTE P ATIENT WAS DENIED AT [facility] AND [employer] [facility]. Voice recognition software may have been used to dictate this note. There may be errors due to use of such software. Reporting of serious errors is appreciated. Past Psychiatric History Past Psychiatric History PATIENT ENDORSES THIS IS HER 6TH PSYCHIATRIC HOSPITALIZATIONS Past Medical History Past Medical History SEE MEDICAL H & P Past Surgical History Past Surgical History SINUS SURGERY [facility] Past Family History Patient History: Developmental delay FAMILY/OTHER, Onset:Pre- FH: CABG (coronary artery bypass surgery) GRANDFATHER OR GRANDMOTHER, Onset:50's - 60 GRANDFATHER OR GRANDMOTHER, Onset:60 years & older FH: arrhythmia GRANDFATHER OR GRANDMOTHER, Onset:Unknown FH: chronic disabling diseases FATHER, Onset:20's - 25 FH: chronic pain MOTHER, Onset:25's - 30 FAMILY/OTHER, Onset:10's - 15 FH: congenital heart problem FH: scoliosis GRANDFATHER OR GRANDMOTHER, Onset:30's - 40 Substance Abuse History Substance Abuse History ALCOHOL-DENIES MARIJUANA-DENIES TOBACCO-DENIES ILLICIT DRUGS-DENIES Personal History Current Living Situation LIVE WITH PARENTS Marital & Relationship History NEVER . NO CHILDREN. SINGLE. Sexual History DEFER Occupational History [employer] Social Activity BORN IN [place]ED IN [place] [employer] Legal History DENIES ANY LEGAL HISTORY History DENIES ANY HISTORY Developmental History Childhood DENIES ANY FORM OF ABUSE Assessment/Plan Problems/Diagnosis: (1) MDD (major depressive disorder), recurrent episode, severe (2) Suicidal ideation (3) Anxiety disorder (4) Personality disorder CODING VISIT-PSYCHIATRY Date of Service: Jun 18, 2025 Billing Provider: TANYA DARDEN APRN Psych Common Visit Codes: [id number] INP/OBS CARE (High) TANYA DARDEN APRN Jun 18, 2025 09:52
[2025-06-18] MEDS ORDERED: AMYL1CAP56 PO (10:39)
[2025-06-18] MEDS ORDERED: MIRT-142 PO (10:43)
--- NOTE | 2025-06-18 12:35 | HISTORY AND PHYSICAL-Residence ---
History & Physical Providers to CC Resident Creating Document: SREE MATSON, RES ~ History of Present Illness Primary Medical Doctor: Dr Ayala Reason for Admit\Complaint: Major depressive disorder History of Present Illness 35-year-old female with past medical history of cystic fibrosis, major depressive disorder is admitted in the center of Behavioral Health at [facility] for major depressive disorder and suicidal ideation. The patient was recently treated in the hospital for bronchiectasis and hemoptysis secondary to her cystic fibrosis exacerbation. Retort Furnace Helper at [facility]-Dr. Gloria and the cable television program director at [facility] cystic fibrosis clinic at [place] Dr. Shelton. As per the cable television program director recommendation the patient was treated in the hospital with a broad-spectrum IV antibiotics-IV cefepime, levofloxacin and vancomycin. The Infectious Disease specialist were also consulted during her hospitalization. The patient's condition improved significantly during the hospitalization and was cleared for evaluation by the psychiatrist for admission in the Behavioral Health unit. Her antibiotics were transitioned to p.o. levofloxacin, linezolid and cefdinir to continue for another five days. She was thus transferred into the behavioral health unit and [facility] yesterday. The patient continues to have a depressed mood and suicidal ideation. Currently denied any concerns or complaints at the moment. She denied any further episodes of hemoptysis, shortness of breath, chest pain, palpitations, nausea or vomiting. Allergies: Coded Allergies: No Known Allergies (Unverified , 09/16/23) Home Medications Home Medications Active Culturelle (Lactobacillus Rhamnosus) 10 Billion Cell Capsule 1 Cap PO BID 30 Days Inderal* (Propranolol HCl) 10 Mg Tablet 10 Mg PO TID 15 Days Hold for heart rate less than 60 Reported Remeron (Mirtazapine) 15 Mg Tablet 15 Mg PO HS Creon 24,000 Units Capsule (Lipase/Protease/Amylase) 1 Each Capsule. 2 Cap PO BID@1500,@2000 WITH SNACKS Cefdinir 300 Mg Capsule 1 Cap PO Q12H 7 Days Linezolid 600 Mg Tablet 1 Tab PO Q12H 10 Days Levofloxacin 750 Mg Tablet 1 Tab PO DAILY 7 Days Inderal* (Propranolol HCl) 10 Mg Tablet 1 Tab PO TID Mvw Complete Form Multivi Sfgl (Pediatric Multivit No.163/D3/K) 750 Unit-500 Mcg Capsule 1 Cap PO BID Therapeutic-M Tablet (Multivit,Calc,Mins/Iron/Folic) 9 Mg Iron-400 Mcg Tablet 1 Tab PO DAILY Beta Carotene (Beta-Carotene) 7,500 Mcg (15790 Unit) Capsule 1 Cap PO DAILY Zyrtec (Cetirizine Hcl) 10 Mg Capsule 1 Cap PO HS Colace (Docusate Sodium) 100 Mg Capsule 1 Cap PO BID Buspirone HCl 15 Mg Tablet 1 Tab PO TID Venlafaxine Hcl Er (Venlafaxine Hcl) 150 Mg Cap.sr.24h 1 Cap PO DAILY Venlafaxine Hcl Er (Venlafaxine Hcl) 37.5 Mg Cap.sr.24h 1 Cap PO DAILY Creon Dr 24,000 Units Capsule (Lipase/Protease/Amylase) 1 Each Capsule.dr 4 Cap PO TIDWM 4 CAPS PO TID WITH MEALS AND 2 CAPS PO BID WITH SNACK @1500 AND @2000 Therapy M Tablet (Multivits,Ca,Minerals/Iron/Fa) 1 Each Tablet 1 Each PO DAILY 9 MG-400MCG TABLET Pulmozyme (Dornase Chris) 1 Mg/1 Ml Solution 2.5 Mg NEB DAILY Kalydeco (Ivacaftor) 150 Mg Tablet 150 Mg PO BID Proventil Nebs* (Albuterol) 2.5 Mg/0.5 Ml Vial.neb 2.5 Mg IH Q6H PRN PRN Past Medical History Past Medical History Cystic fibrosis, major depressive disorder, bronchiectasis Past Surgical History Surgical History Comment Sinus surgery Port placement Family History Family History: Developmental delay FAMILY/OTHER, Onset:Pre- FH: CABG (coronary artery bypass surgery) GRANDFATHER OR GRANDMOTHER, Onset:50's - 60 GRANDFATHER OR GRANDMOTHER, Onset:60 years & older FH: arrhythmia GRANDFATHER OR GRANDMOTHER, Onset:Unknown FH: chronic disabling diseases FATHER, Onset:20's - 25 FH: chronic pain MOTHER, Onset:25's - 30 FAMILY/OTHER, Onset:10's - 15 FH: congenital heart problem FH: scoliosis GRANDFATHER OR GRANDMOTHER, Onset:30's - 40 Past Social History Social History Comment Patient denies smoking history. Denies recreational drug use. Dr. Donya Hernandez for Psychiatry, [facility] for primary care Alcohol Use: None Drug Use: None Lives with: Family Lives In: Home ROS ROS As stated above in the HPI, otherwise all systems are reviewed and negative. Exam Vitals: Vital Signs Date Time Temp Pulse Resp B/P (MAP) Pulse Ox O2 Delivery O2 Flow Rate FiO2 06/18/25 08:00 98.1 103 16 118/85 (96) 98 Room Air General: General: Awake and Alert, no acute distress. HEENT: Conjunctiva pink, Sclera clear, Mucus Membranes moist. Neck: Supple without masses and tenderness. Resp: Unlabored. Lungs clear to auscultation bilaterally. Heart: Regular Rate and rhythm, normal S1 and S2 without murmur, rub or gallop. Abdomen: Soft and non tender no organomegaly Extremities: No cyanosis,clubbing or edema. Skin: Warm and Dry. Neurology: No focal motor or sensory deficits. Advance Care Planning Advanced Care planning: N/A Additional Plan Major depressive disorder Suicidal ideation Management as per the psychiatrist. Hemoptysis-resolved Bronchiectasis Exacerbation of cystic fibrosis-resolved History of pulmonary embolism As per recommendations from the cable television program director the patient is currently started on oral levofloxacin 750 mg p.o. daily, linezolid 600 mg p.o. b.i.d. and cefdinir 300 mg p.o. b.i.d. Continue antibiotics for five days starting today. End date with the antibiotics would be 06/22/2025. Restarted dornase inhaler and as needed albuterol inhaler. Pancreatic insufficiency secondary to cystic fibrosis Prediabetes A1c 6.1 Continue Creon No acute medical problems noted. Continue management as per the psychiatrist. The hospitalist team we will continue to monitor during the course of her hospitalization. The patient is to follow up with her cable television program director at [facility] cystic fibrosis Center post discharge. Date of Service: Jun 18, 2025 Billing Provider: LALY RODRIGUEZ MD Common Visit Codes: [id number] INP/OBS CARE (MOD) SREE MATSON NABEEL, RES Jun 18, 2025 12:35 LALY RODRIGUEZ MD Jun 23, 2025 15:26
[2025-06-18] MEDS: DORNASE ALFA 1 MG/ML IH SCH (12:46)
[2025-06-18] MEDS ORDERED: AMYLASE PO SCH ×2 (13:00)
[2025-06-18] MEDS: PROTEASE PO SCH ×2 (13:00→15:00)
[2025-06-18] MEDS: AMYLASE PO SCH ×2 (13:00→15:00)
[2025-06-18] MEDS ORDERED: PROTEASE PO SCH ×2 (13:00)
[2025-06-18] MEDS: LIPASE PO SCH ×2 (13:00→15:00)
[2025-06-18] MEDS ORDERED: LIPASE PO SCH ×2 (13:00)
[2025-06-18] MEDS ORDERED: [UNRECOGNIZED DRUG - REMARK] PO ONE (13:15)
[2025-06-18] MEDS: levoFLOXACIN 750MG TABLET PO SCH (14:09)
[2025-06-18] MEDS: BETA CAROTENE PO SCH (14:10)
[2025-06-18] MEDS: FOLIC PO SCH (14:11)
[2025-06-18] MEDS: [UNRECOGNIZED DRUG - OTHER] PO SCH (14:11)
[2025-06-18] MEDS: IRON PO SCH (14:11)
[2025-06-18] MEDS: [UNRECOGNIZED DRUG - REMARK] PO SCH (14:15)
[2025-06-18] MEDS ORDERED: IVACAFTOR 150 MG PO SCH (20:00)
[2025-06-18] MEDS ORDERED: [UNRECOGNIZED DRUG - REMARK] PO SCH (20:00)
[2025-06-18] MEDS: docusate sod 100mg capsule PO SCH (20:18)
[2025-06-18] MEDS: busPIRone 15mg tablet PO SCH (20:19)
[2025-06-18] MEDS: propranolol 10mg tablet PO SCH (20:19)
[2025-06-18] MEDS: albuterol 2.5 MG/3 ML nebule NEB PRN (20:56)
[2025-06-19 07:00] VITALS: RESP 16; O2SAT 99
[2025-06-19 08:00] VITALS: BP 120/87; PULSE 97; RESP 16; TEMP 97.9; O2SAT 99
[2025-06-19] MEDS ORDERED: [UNRECOGNIZED DRUG - OTHER] PO SCH (08:00)
[2025-06-19] MEDS ORDERED: IRON PO SCH ×2 (08:00)
[2025-06-19] MEDS ORDERED: MULTIVIT CALC MINS PO SCH (08:00)
[2025-06-19] MEDS ORDERED: MULTIVITS CA MINERALS PO SCH (08:00)
[2025-06-19] MEDS ORDERED: FOLIC PO SCH (08:00)
[2025-06-19] MEDS: venlafaxine XR 75mg capsule (Q24H) PO SCH (08:11)
--- NOTE | 2025-06-19 15:00 | PROGRESS NOTE ---
Progress Note Dictate Providers to CC ~ Central Line/PICC still needed: N\\A Antibiotic Ordered?: No MRSA Education MRSA Education Provided to pt: No Objective Vitals Vital Signs Date Time Temp Pulse Resp B/P (MAP) Pulse Ox O2 Delivery O2 Flow Rate FiO2 06/18/25 21:09 110 16 Room Air 0.0 21 06/18/25 21:01 96 06/18/25 20:00 06/18/25 08:00 98.1 Problem\\Assessment\\Plan Problems/Diagnosis: (1) MDD (major depressive disorder), recurrent episode, severe (2) Suicidal ideation (3) Anxiety disorder (4) Personality disorder Psychiatrist's Progress Note Date of Service: Jun 19, 2025 Notes CHART REVIEW 35-year-old female with past medical history of cystic fibrosis, major depressive disorder is admitted in the center of Behavioral Health at [facility] for major depressive disorder and suicidal ideation. The patient was recently treated in the hospital for bronchiectasis and hemoptysis secondary to her cystic fibrosis exacerbation. Pump And Still Operator at [facility]-Dr. Gloria and the railroad surveyor at [facility] cystic fibrosis clinic at [place] Dr. Shelton. As per the railroad surveyor recommendation the patient was treated in the hospital with a broad-spectrum IV antibiotics-IV cefepime, levofloxacin and vancomycin. The Infectious Disease specialist were also consulted during her hospitalization. The patient's condition improved significantly during the hospitalization and was cleared for evaluation by the psychiatrist for admission in the Behavioral Health unit. Her antibiotics were transitioned to p.o. levofloxacin, linezolid and cefdinir to continue for another five days. She was thus transferred into the behavioral health unit and [facility] yesterday. The patient continues to have a depressed mood and suicidal ideation. Currently denied any concerns or complaints at the moment. She denied any further episodes of hemoptysis, shortness of breath, chest pain, palpitations, nausea or vomiting. ASSESSMENT The patient was interviewed in observation room. The patient was actively eating snack in rec room and engaging with peers. The patient endorses "pretty good." One of the friends I met in here was discharged and I miss him already." "Long story short that is why I am feeling depressed and suicidal today because of that." When asked if you have a plan to commit suicide the patient endorses "I don't wan to tell you but it is always with sharp objects to my cut my wrist and arms and of course to be euthanized." "I also wanting to tell you that I believe the increase in the Remeron and the increase in the Effexor is working good." Denies HI. Denies AVH. The patient endorses adequate sleep and food intake. The patient is stable no acute distress noted. The patient presents as depressed, suicidal W/ plan, and engaged during session. Per staff report patient is medication compliant. Per staff report no abnormal behaviors. Will continue daily assessment and adjusting treatment as needed. Closely monitor behavior and response to medication during hospitalization. Appearnace: Disheveled Eye Contact: Avoidant Motor Activity: Normal Affect: Flat Mood: Depressed Orientation Impairment: None Memory Impairment: None Attention: Normal Hallucinations: None Other: None Suicidality: Ideation, Plan Homicidality: None Delusions: None Behavior: Guarded Insight: Poor Judgment: Poor Treatment Medication changes were made yesterday with some improvement. We will continue to monitor 1-2 more days before adjusting medications. REMERON 30 MG P.O. Q.H.S. BUSPAR 15 MG PO TID VENLAFAXINE 225 MG P.O. DAILY TRAZODONE 50 MG P.O. Q.6 PRN THORAZINE 50 MG P.O. Q.6 PRN BENADRYL 50 MG P.O. Q.6 PRN HYDROXYZINE 50 MG P.O. Q.6 PRN VOLUNTARY Monitoring by Staff, Milieu, Group, and Individual counseling as needed -- According to the [place] Suicide Assessment the above named patient is on Q15 MINUTE CHECKS. Total time spent 50 minutes on REVIEW OF Clinical notes [X ] RN notes [X] PCT documentation [X] SW notes Labs [ X] Medications [X] Care trends/care activity [X] Vitals [X] DISCUSSION WITH senior resident care director [X] Staff SW Treatment Team [X] Voice recognition software may have been used to dictate this note. There may be errors due to use of such software. Reporting of serious errors is appreciated. Discharge UNSURE AT THIS TIME. DISCHARGE HOME ONCE STABLE. PER RETINAL ANGIOGRAPHER'S NOTE PATIENT WAS DENIED AT [facility] AND [facility]. CODING VISIT-PSYCHIATRY Date of Service: Jun 19, 2025 Billing Provider: TANYA DARDEN APRN Psych Common Visit Codes: [id number] INP/OBS CARE(Mod) TANYA DARDEN APRN Jun 19, 2025 15:00
[2025-06-19 19:00] VITALS: RESP 18; O2SAT 97
[2025-06-19 20:00] VITALS: BP 119/85; PULSE 102; RESP 18; TEMP 98.9; O2SAT 97
[2025-06-19 21:54] VITALS: PULSE 90; RESP 16; O2SAT 94
[2025-06-19 22:02] VITALS: PULSE 84; RESP 16
[2025-06-20 07:00] VITALS: RESP 16; O2SAT 96
[2025-06-20 08:00] VITALS: BP 128/88; PULSE 65; RESP 16; TEMP 98.1; O2SAT 96
--- NOTE | 2025-06-20 11:21 | PROGRESS NOTE ---
Progress Note Dictate Providers to CC ~ Central Line/PICC still needed: N\\A Antibiotic Ordered?: No MRSA Education MRSA Education Provided to pt: No Objective Vitals Vital Signs Date Time Temp Pulse Resp B/P (MAP) Pulse Ox O2 Delivery O2 Flow Rate FiO2 06/20/25 08:00 98.1 65 16 128/88 (101) 96 Room Air 06/19/25 21:54 0 21 Problem\\Assessment\\Plan Problems/Diagnosis: (1) MDD (major depressive disorder), recurrent episode, severe (2) Suicidal ideation (3) Anxiety disorder (4) Personality disorder Psychiatrist's Progress Note Date of Service: Jun 20, 2025 Notes CHART REVIEW 35-year-old female with past medical history of cystic fibrosis, major depressive disorder is admitted in the center of Behavioral Health at [facility] for major depressive disorder and suicidal ideation. The patient was recently treated in the hospital for bronchiectasis and hemoptysis secondary to her cystic fibrosis exacerbation. Staff Midwife at [facility]-Dr. Gloria and the mercury purifier at [facility] cystic fibrosis clinic at [place] Dr. Shelton. As per the mercury purifier recommendation the patient was treated in the hospital with a broad-spectrum IV antibiotics-IV cefepime, levofloxacin and vancomycin. The Infectious Disease specialist were also consulted during her hospitalization. The patient's condition improved significantly during the hospitalization and was cleared for evaluation by the psychiatrist for admission in the [facility] unit. Her antibiotics were transitioned to p.o. levofloxacin, linezolid and cefdinir to continue for another five days. She was thus transferred into the behavioral health unit and [facility] yesterday. The patient continues to have a depressed mood and suicidal ideation. Currently denied any concerns or complaints at the moment. She denied any further episodes of hemoptysis, shortness of breath, chest pain, palpitations, nausea or vomiting. ASSESSMENT The patient was interviewed in observation room. The patient was actively sitting in rec room. The patient endorses "Good, better." I am just waiting to her back from my SW at [facility], she came to see me yesterday." I think my suicidal thoughts and my depression will go away once I hear back from rosa isela my social services technician about the things that she is helping me with." She is supposed to be helping me with housing and [facility] interview and [facility], it in my free medical cell phone and getting my medical transportation set-up." "I am not feeling suicidal today but I am feeling depressed because I am still waiting to hear back from rosa isela about that is stuff." Denies SI. Denies HI. Denies AVH. The patient endorses adequate sleep and food intake. The patient is stable no acute distress noted. The patient presents as depressed, and engaged during session. Per staff report patient is medication compliant. Per staff report no abnormal behaviors. Will continue daily assessment and adjusting treatment as needed. Closely monitor behavior and response to medication during hospitalization. Appearnace: Other Speech: Other (CIRCUMSTANTIAL) Eye Contact: Avoidant Motor Activity: Normal Affect: Constricted Orientation Impairment: None Memory Impairment: None Attention: Normal Hallucinations: None Other: None Suicidality: None Homicidality: None Delusions: None Behavior: Guarded Insight: Poor Judgment: Poor Treatment REMERON 30 MG P.O. Q.H.S. BUSPAR 15 MG PO TID VENLAFAXINE 225 MG P.O. DAILY TRAZODONE 50 MG P.O. Q.6 PRN THORAZINE 50 MG P.O. Q.6 PRN BENADRYL 50 MG P.O. Q.6 PRN HYDROXYZINE 50 MG P.O. Q.6 PRN VOLUNTARY Monitoring by Staff, Milieu, Group, and Individual counseling as needed -- According to the [place] Suicide Assessment the above named patient is on Q15 MINUTE CHECKS. Total time spent 40 minutes on REVIEW OF Clinical notes [X ] RN notes [X] PCT documentation [X] SW notes Labs [ X] Medications [X] Care trends/care activity [X] Vitals [X] DISCUSSION WITH authorization representative [X] Staff SW Treatment Team [X] Voice recognition software may have been used to dictate this note. There may be errors due to use of such software. Reporting of serious errors is appreciated. Discharge UNSURE AT THIS TIME. DISCHARGE HOME ONCE STABLE. PER PSYCH TECH'S NOTE PATIENT WAS DENIED AT [facility] AND [employer] [facility]. CODING VISIT-PSYCHIATRY Date of Service: Jun 20, 2025 Billing Provider: TANYA DARDEN APRN Psych Common Visit Codes: [id number] INP/OBS CARE(Mod) TANYA DARDEN APRN Jun 20, 2025 11:21
--- NOTE | 2025-06-20 17:48 | PROGRESS NOTE- Residence ---
Progress Note - Resident Providers to CC Resident Creating Document: MELITON SARABIA, RES ~ Antibiotic Timeout Antibiotic Ordered?: No Subjective The patient has been evaluated in mental health unit. The patient is currently asymptomatic, denies any medical complaints. Objective Vital Signs Date Time Temp Pulse Resp B/P (MAP) Pulse Ox O2 Delivery O2 Flow Rate FiO2 06/20/25 08:00 98.1 65 16 128/88 (101) 96 Room Air 06/19/25 21:54 0 21 Physical exam: General: Well alert, well oriented, not confused, not agitated, not in acute distress, well cooperated during the physical. HEENT: Conjunctive are pink, sclerae clear, no icterus, pupil is equal in both sides, reactive to light, no ear discharge, no pharyngeal erythema or an edema. Neck: Supple, no JVD, no lymphadenopathy and thyromegaly. Chest: Equal air entry on both lungs, no additional sounds no rhonchi no wheezing at the moment. Cardiovascular: S1-S2 regular sinus rhythm and, regular rate, no gallops, no rubs, no murmurs Abdomen: No visible peristalsis, Bowel sounds present on auscultation, soft, nontender, no guarding, no rigidity Extremities: No obvious deformities, no pitting edema bilaterally, capillary refill intact, peripheral pulsations are intact on both sides Central Nervous System: No focal neurological deficits, no motor or sensory weakness in all 4 extremities, could move all 4 extremities, 2+ deep tendon reflexes, negative Babinski. Musculoskeletal: No joint swelling, deformities, inflammations, and no scoliosis and back tenderness Skin: Warm and dry. Assessment Assessment 35-year-old female patient admitted to mental health unit due to suicidal ideation. Plan Plan Major depressive disorder Suicidal ideation Currently on buspirone, chlorpromazine, hydroxyzine, trazodone, venlafaxine. Management as per the psychiatrist. Hemoptysis-resolved Bronchiectasis Exacerbation of cystic fibrosis-resolved History of pulmonary embolism As per recommendations from the yard hostler the patient is currently started on oral levofloxacin 750 mg p.o. daily, linezolid 600 mg p.o. b.i.d. and cefdinir 300 mg p.o. b.i.d (cefdinir to be completed on 06/22/2025). Dornase edi daily. Albuterol q.6h PRN. Pancreatic insufficiency secondary to cystic fibrosis Prediabetes A1c 6.1 Continue Creon. Sinus tachycardia: Continue propranolol 10 mg t.i.d. hold if heart rate is less than 65 beats per minute. Disposition: Hospitalist team will continue to monitor the patient. Meliton Rosales Internal Medicine Resident [facility] Date of Service: Jun 20, 2025 Billing Provider: SHAYY ZARATE MD Common Visit Codes: [id number] INP/OBS CARE(MOD) MELITON SARABIA, RES Jun 20, 2025 17:48 SHAYY ZARATE MD Jun 21, 2025 09:34
[2025-06-20 19:00] VITALS: RESP 15; O2SAT 97
[2025-06-20 20:00] VITALS: BP 113/83; PULSE 95; RESP 15; TEMP 98.8; O2SAT 97
[2025-06-21] VITALS (7 sets, daily range): BP systolic 117–120; BP diastolic 79–84; PULSE 74–102; RESP 16–18; TEMP 97.4–99.3; O2SAT 96–100
--- NOTE | 2025-06-21 10:46 | PROGRESS NOTE ---
Progress Note Dictate Providers to CC ~ Central Line/PICC still needed: N\\A Antibiotic Ordered?: No MRSA Education MRSA Education Provided to pt: No Objective Vitals Vital Signs Date Time Temp Pulse Resp B/P (MAP) Pulse Ox O2 Delivery O2 Flow Rate FiO2 06/20/25 20:00 98.8 95 15 113/83 (93) 97 Room Air 06/19/25 21:54 0 21 Problem\\Assessment\\Plan Problems/Diagnosis: (1) MDD (major depressive disorder), recurrent episode, severe (2) Suicidal ideation (3) Anxiety disorder (4) Personality disorder Psychiatrist's Progress Note Date of Service: Jun 21, 2025 Notes CHART REVIEW 35-year-old female with past medical history of cystic fibrosis, major depressive disorder is admitted in the center of Behavioral Health at [facility] for major depressive disorder and suicidal ideation. The patient was recently treated in the hospital for bronchiectasis and hemoptysis secondary to her cystic fibrosis exacerbation. County Demonstrator at [facility]-Dr. Gloria and the charcoal burner beehive kiln at [facility] cystic fibrosis clinic at [place] Dr. Shelton. As per the charcoal burner beehive kiln recommendation the patient was treated in the hospital with a broad-spectrum IV antibiotics-IV cefepime, levofloxacin and vancomycin. The Infectious Disease specialist were also c onsulted during her hospitalization. The patient's condition improved significantly during the hospitalization and was cleared for evaluation by the psychiatrist for admission in the Behavioral Health unit. Her antibiotics were transitioned to p.o. levofloxacin, linezolid and cefdinir to continue for another five days. She was thus transferred into the behavioral health unit and [facility] yesterday. The patient continues to have a depressed mood and suicidal ideation. Currently denied any concerns or complaints at the moment. She denied any further episodes of hemoptysis, shortness of breath, chest pain, palpitations, nausea or vomiting. ASSESSMENT The patient was interviewed in observation room. The patient was actively sitting in rec room. The patient endorses "I am worried about going home." Passive SI. Denies HI. Denies AVH. The patient endorses adequate food intake. Per staff report patient slept 3 hours last night. The patient is stable no acute distress noted. The patient presents as depressed, irritable, agitated, and engaged during session. The patient expresses her wants to get her own housing but it is not that "easy." The patient was encouraged to maybe get a job or find some activities/hobby outside of the home where she can get out and not be so depressed. Per staff report patient is medication compliant. Per staff report no abnormal behaviors. Will continue daily assessment and adjusting treatment as needed. Closely monitor behavior and response to medication during hospitalization. Speech: Other (CIRCUMSTANTIAL) Eye Contact: Other (INTERMITTENT) Motor Activity: Normal Affect: Flat Mood: Anxious, Depressed, Irritable Orientation Impairment: None Memory Impairment: None Attention: Normal Hallucinations: None Other: None Suicidality: Ideation (PASSIVE) Homicidality: None Delusions: None Behavior: Cooperative Insight: Fair Judgment: Poor Treatment REMERON 30 MG P.O. Q.H.S. BUSPAR 15 MG PO TID VENLAFAXINE 225 MG P.O. DAILY TRAZODONE 50 MG P.O. Q.6 PRN THORAZINE 50 MG P.O. Q.6 PRN BENADRYL 50 MG P.O. Q.6 PRN HYDROXYZINE 50 MG P.O. Q.6 PRN VOLUNTARY Monitoring by Staff, Milieu, Group, and Individual counseling as needed -- According to the [place] Suicide Assessment the above named patient is on Q15 MINUTE CHECKS. Total time spent 60 minutes on REVIEW OF Clinical notes [X ] RN notes [X] PCT documentation [X] SW notes Labs [ X] Medications [X] Care trends/care activity [X] Vitals [X] DISCUSSION WITH dental technician apprentice [X] Staff SW Treatment Team [X] Voice recognition software may have been used to dictate this note. There may be errors due to use of such software. Reporting of serious errors is apprec iated. Discharge UNSURE AT THIS TIME. DISCHARGE HOME ONCE STABLE. PER RAP ARTIST'S NOTE PATIENT WAS DENIED AT [facility] AND [facility]. CODING VISIT-PSYCHIATRY Date of Service: Jun 21, 2025 Billing Provider: TANYA DARDEN APRN Psych Common Visit Codes: [id number] INP/OBS CARE(Mod) TANYA DARDEN APRN Jun 21, 2025 10:46
[2025-06-22] VITALS (7 sets, daily range): BP systolic 114–115; BP diastolic 71–81; PULSE 80–94; RESP 16–20; TEMP 97.7–98.1; O2SAT 97–98
[2025-06-22] MEDS: loperamide 2mg capsule PO PRN (08:35)
--- NOTE | 2025-06-22 09:43 | PROGRESS NOTE ---
Daily Progress Note Providers to CC Today, resting comfortably in the bed, no new complaint ~ Central Line/PICC still needed: No Diehl-Non Protocol Diehl Indications Met/Not Met: F/C Indications Not Met Antibiotic Timeout Antibiotic Ordered?: No MRSA Education MRSA Education Provided to pt: No Subjective As above Objective Vital Signs Date Time Temp Pulse Resp B/P (MAP) Pulse Ox O2 Delivery O2 Flow Rate FiO2 06/22/25 09:27 90 20 97 Room Air* 0 21 06/22/25 08:00 98.1 114/71 (85) Vital signs, stable ,afebrile. Pulse Oximetry reflects adequate oxygenation. General: well developed, well nourished. Awake , alert, and oriented x4, resting comfortably in the bed, in no acute distress . Skin: Warm, dry, no pallor, no rash or petechiae. HEENT: Atraumatic, normocephalic, EOMI, anicteric sclera B; pink conjunctiva; PERRLA, normal oropharynx, moist oral and nasal mucosa. Tympanic membrane , nose , throat clear. Neck: Trachea midline. Supple, full range of motion, no JVD, bruit , hepatojugular reflex , lymphadenopathy or masses, or other lesions Cardiac: Regular rhythm, regular rate no murmurs, rubs, or gallops. Normal S1 and S2, no S3 noticed. PMI is normal. Respiratory: Equal breath sounds bilaterally, no tachypnea; lungs clear to auscultation bilaterally, no wheezing ,rub or rales, or crackles. Chest wall is symmetric and without deformity. No signs of trauma. Chest wall is nontender. No signs of respiratory distress. Resonance is normal upon percussion bilaterally. Gastrointestinal: Abdomen symmetric, non-distended, soft, non-tender, normal bowel sounds x4 quadrant, normoactive, no hepatosplenomegaly , no masses , no bruit, no flank pain bilaterally. No voluntary guarding, rebound, or rigidity. No tenderness to percussion. No pulsatile masses. Equal femoral pulses. No Castro's sign or McBurney point tenderness. Back; no CVA tenderness bilaterally, no deformities. Neck and back are without deformity as well. No tenderness noted on palpation of the spinous processes. Spinous processes are midline. Cervical, thoracic, and lumbar paraspinal muscles are not tender and are without spasm. Musculoskeletal: Extremities, normal range of motion, non-tender, muscle strength 5/5 x 4. Negative Homans signs bilaterally on lower extremity. Distal pulses full symmetrical, no clubbing, cyanosis , edema. Neurological: Speech is clear, alert, and oriented x 4. No motor or sensory deficit, deep tendon reflexes normal, cerebellar intact. Cranial nerves II-XII intact. Psych: Alert and or appropriate, normal affect. Vascular: Good distal pulses, which are equal x4; capillary refill less than 2 seconds. Lymphatic, no lymphadenopathy. Problem\Assessment\Plan Assessment/ Plan Major depressive disorder Suicidal ideation Currently on buspirone, chlorpromazine, hydroxyzine, trazodone, venlafaxine. Management as per the psychiatrist. Hemoptysis-resolved Bronchiectasis Exacerbation of cystic fibrosis-resolved History of pulmonary embolism As per recommendations from the senior bookkeeper the patient is currently started on oral levofloxacin 750 mg p.o. daily, linezolid 600 mg p.o. b.i.d. and cefdinir 300 mg p.o. b.i.d (cefdinir to be completed on 06/22/2025). Dornase edi daily. Albuterol q.6h PRN. Pancreatic insufficiency secondary to cystic fibrosis Prediabetes A1c 6.1 Continue Creon. Sinus tachycardia: Continue propranolol 10 mg t.i.d. hold if heart rate is less than 65 beats per minute. Disposition: Hospitalist team will continue to monitor the patient. Sepsis Screening Reassessment Date: Jun 22, 2025 Date of Service: Jun 22, 2025 Billing Provider: BARTOLO YAÑEZ MD Common Visit Codes: [id number] INP/OBS CARE(MOD) BARTOLO YAÑEZ MD Jun 22, 2025 09:43
--- NOTE | 2025-06-22 14:08 | PROGRESS NOTE ---
Progress Note Dictate Providers to CC ~ Central Line/PICC still needed: N\\A Antibiotic Ordered?: No MRSA Education MRSA Education Provided to pt: No Objective Vitals Vital Signs Date Time Temp Pulse Resp B/P (MAP) Pulse Ox O2 Delivery O2 Flow Rate FiO2 06/22/25 09:27 90 20 97 Room Air* 0 21 06/22/25 08:00 98.1 114/71 (85) Problem\\Assessment\\Plan Problems/Diagnosis: (1) MDD (major depressive disorder), recurrent episode, severe (2) Suicidal ideation (3) Anxiety disorder (4) Personality disorder Psychiatrist's Progress Note Date of Service: Jun 22, 2025 Notes CHART REVIEW 35-year-old female with past medical history of cystic fibrosis, major depressive disorder is admitted in the center of Behavioral Health at [facility] for major depressive disorder and suicidal ideation. The patient was recently treated in the hospital for bronchiectasis and hemoptysis secondary to her cystic fibrosis exacerbation. Manager Style at [facility]-Dr. Gloria and the applications engineer at [facility] cystic fibrosis clinic at [place] [address] [place]ton. As per the applications engineer recommendation the patient was treated in the hospital with a broad-spectrum IV antibiotics-IV cefepime, levofloxacin and vancomycin. The Infectious Disease specialist were also c onsulted during her hospitalization. The patient's condition improved significantly during the hospitalization and was cleared for evaluation by the psychiatrist for admission in the Behavioral Health unit. Her antibiotics were transitioned to p.o. levofloxacin, linezolid and cefdinir to continue for another five days. She was thus transferred into the behavioral health unit and [facility] yesterday. The patient continues to have a depressed mood and suicidal ideation. Currently denied any concerns or complaints at the moment. She denied any further episodes of hemoptysis, shortness of breath, chest pain, palpitations, nausea or vomiting. ASSESSMENT The patient was interviewed in observation room. The patient was actively sitting edge of bed with headphones on . The patient endorses "Okay." The patient endorses she has 2 replenishment specialist coming to visit hurts during visiting hours sometime this week and she is really looking forward to that. Patient endorses she is still hoping to get some type of housing either from the help of her neonatal social worker at [facility] or her neonatal social workerEdwige at [facility]. Denies SI. Denies HI. Denies AVH. The patient endorses adequate sleep and food intake. Per staff report patient slept 6.50 hours. The patient is stable no acute distress noted. The patient presents as less anxious, less irritable, cooperative, and engaged during session. The patient appears more positive today and continues to show some improvement since admiss ion. Per staff report patient is medication compliant. Per staff report no abnormal behaviors. Will continue daily assessment and adjusting treatment as needed. Closely monitor behavior and response to medication during hospitalization. Appearnace: Other Speech: Normal Eye Contact: Normal Motor Activity: Normal Affect: Full Orientation Impairment: None Memory Impairment: None Attention: Normal Hallucinations: None Other: None Suicidality: None Homicidality: None Delusions: None Behavior: Cooperative Insight: Fair Judgment: Fair, Poor Treatment REMERON 30 MG P.O. Q.H.S. BUSPAR 15 MG PO TID VENLAFAXINE 225 MG P.O. DAILY TRAZODONE 50 MG P.O. Q.6 PRN THORAZINE 50 MG P.O. Q.6 PRN BENADRYL 50 MG P.O. Q.6 PRN HYDROXYZINE 50 MG P.O. Q.6 PRN VOLUNTARY Monitoring by Staff, Milieu, Group, and Individual counseling as needed -- According to the [place] Suicide Assessment the above named patient is on Q15 MINUTE CHECKS. Total time spent 40 minutes on REVIEW OF Clinical notes [X ] RN notes [X] PCT documentation [X] SW notes Labs [ X] Medications [X] Care trends/care activity [X] Vitals [X] DISCUSSION WITH dog licenser [X] Staff SW Treatment Team [X] Voice recognition software may have been used to dictate this note. There may be errors due to use of such software. Reporting of serious errors is appreciated. Discharge UNSURE AT THIS TIME. DISCHARGE HOME ONCE STABLE. PER RESEARCH ASSISTANT MEMBER'S NOTE PATIENT WAS DENIED AT [facility] AND [facility]. CODING VISIT-PSYCHIATRY Date of Service: Jun 22, 2025 Billing Provider: TANYA DARDEN APRN Psych Common Visit Codes: [id number] INP/OBS CARE(Mod) TANYA DARDEN APRN Jun 22, 2025 14:08
[2025-06-23 07:00] VITALS: RESP 16; O2SAT 98
[2025-06-23 08:00] VITALS: BP 116/80; PULSE 96; RESP 16; TEMP 98.8; O2SAT 98
[2025-06-23 08:43] VITALS: PULSE 88; RESP 16; O2SAT 98
[2025-06-23 08:56] VITALS: PULSE 68; RESP 18
--- NOTE | 2025-06-23 14:56 | PROGRESS NOTE ---
Progress Note Dictate Providers to CC ~ Central Line/PICC still needed: N\\A Antibiotic Ordered?: No MRSA Education MRSA Education Provided to pt: No Objective Vitals Vital Signs Date Time Temp Pulse Resp B/P (MAP) Pulse Ox O2 Delivery O2 Flow Rate FiO2 06/23/25 08:56 68 18 Room Air 0.0 06/23/25 08:43 98 21 06/23/25 08:00 98.8 116/80 (92) Problem\\Assessment\\Plan Problems/Diagnosis: (1) MDD (major depressive disorder), recurrent episode, severe (2) Suicidal ideation (3) Anxiety disorder (4) Personality disorder Psychiatrist's Progress Note Date of Service: Jun 23, 2025 Notes CHART REVIEW 35-year-old female with past medical history of cystic fibrosis, major depressive disorder is admitted in the center of Behavioral Health at [facility] for major depressive disorder and suicidal ideation. The patient was recently treated in the hospital for bronchiectasis and hemoptysis secondary to her cystic fibrosis exacerbation. Waiter/Waitress Informal at [facility]-Dr. Gloria and the rn new graduate at [facility] cystic fibrosis clinic at [place] [address]. Shelton. As per the rn new graduate recommendation the patient was treated in the hospital with a broad-spectrum IV antibiotics-IV cefepime, levofloxacin and vancomycin. The Infectious Disease specialist were also consulted during her hospitalization. The patient's condition improved significantly during the hospitalization and was cleared for evaluation by the psychiatrist for admission in the Behavioral Health unit. Her antibiotics were transitioned to p.o. levofloxacin, linezolid and cefdinir to continue for another five days. She was thus transferred into the behavioral health unit and [facility] yesterday. The patient continues to have a depressed mood and suicidal ideation. Currently denied any concerns or complaints at the moment. She denied any further episodes of hemoptysis, shortness of breath, chest pain, palpitations, nausea or vomiting. ASSESSMENT The patient was interviewed in observation room. The patient was actively sitting in rec room engaging with peers. The patient endorses "I am doing better ." Denies SI. Denies HI. Denies AVH. The patient endorses adequate sleep and food intake. The patient is stable no acute distress noted. The patient presents as calm, cooperative, engaged during session. The patient expresses she is not sure if she will be returning home once discharge. The patient expresses that her sexual assault social worker rosa isela should be coming to visit her some day this week to discuss possible housing arrangements. The patient was informed she will be discharged or Monday of this weeks if she continues to show stabilization with current medication regimen. Per staff report patient is medication compliant. Per staff report no abnormal behaviors. Will continue daily assessment and adjusting treatment as needed. Closely monitor behavior and response to medi cation during hospitalization. Speech: Normal Eye Contact: Normal Motor Activity: Normal Affect: Full Orientation Impairment: None Memory Impairment: None Attention: Normal Hallucinations: None Other: None Suicidality: None Homicidality: None Delusions: None Behavior: Cooperative Insight: Fair Judgment: Fair Treatment REMERON 30 MG P.O. Q.H.S. BUSPAR 15 MG PO TID VENLAFAXINE 225 MG P.O. DAILY TRAZODONE 50 MG P.O. Q.6 PRN THORAZINE 50 MG P.O. Q.6 PRN BENADRYL 50 MG P.O. Q.6 PRN HYDROXYZINE 50 MG P.O. Q.6 PRN VOLUNTARY Monitoring by Staff, Milieu, Group, and Individual counseling as needed -- According to the [place] Suicide Assessment the above named patient is on Q15 MINUTE CHECKS. Total time spent 40 minutes on REVIEW OF Clinical notes [X ] RN notes [X] PCT documentation [X] SW notes Labs [ X] Medications [X] Care trends/care activity [X] Vitals [X] DISCUSSION WITH r d manager [X] Staff SW Treatment Team [X] Voice recognition software may have been used to dictate this note. There may be errors due to use of such software. Reporting of serious errors is appreciated. Discharge UNSURE AT THIS TIME. DISCHARGE HOME ONCE STABLE. POSSIBLE DISCHARGE HOME MONDAY OR MONDAY CODING VISIT-PSYCHIATRY Date of Service: Jun 23, 2025 Billing Provider: TANYA DARDEN APRN Psych Common Visit Codes: [id number] INP/OBS CARE(Low) TANYA DARDEN APRN Jun 23, 2025 14:56
[2025-06-23 19:48] VITALS: RESP 18; O2SAT 98
[2025-06-23 20:06] VITALS: BP 110/78; PULSE 96; RESP 16; TEMP 98.8; O2SAT 96
[2025-06-24] VITALS (7 sets, daily range): BP systolic 115–140; BP diastolic 77–94; PULSE 82–100; RESP 15–16; TEMP 97.8–98.7; O2SAT 97–100
--- NOTE | 2025-06-24 16:16 | PROGRESS NOTE ---
Progress Note Dictate Providers to CC ~ Central Line/PICC still needed: N\\A Antibiotic Ordered?: No MRSA Education MRSA Education Provided to pt: No Objective Vitals Vital Signs Date Time Temp Pulse Resp B/P (MAP) Pulse Ox O2 Delivery O2 Flow Rate FiO2 06/24/25 12:30 91 115/77 (90) 06/24/25 10:41 16 Room Air 0.0 06/24/25 10:31 98 21 06/24/25 08:00 97.8 Problem\\Assessment\\Plan Problems/Diagnosis: (1) MDD (major depressive disorder), recurrent episode, severe (2) Suicidal ideation (3) Anxiety disorder (4) Personality disorder Psychiatrist's Progress Note Date of Service: Jun 24, 2025 Notes CHART REVIEW 35-year-old female with past medical history of cystic fibrosis, major depressive disorder is admitted in the center of Behavioral Health at [facility] for major depressive disorder and suicidal ideation. The patient was recently treated in the hospital for bronchiectasis and hemoptysis secondary to her cystic fibrosis exacerbation. Paralegal Internship at [facility]-Dr. Gloria and the boat worker at [facility] cystic fibrosis clinic at [place] [address] Shelton. As per the boat worker recommendation the patient was treated in the hospital with a broad-spectrum IV antibiotics-IV cefepime, levofloxacin and vancomycin. The Infectious Disease specialist were also consulted during her hospitalization. The patient's condition improved significantly during the hospitalization and was cleared for evaluation by the psychiatrist for admission in the Behavioral Health unit. Her antibiotics were transitioned to p.o. levofloxacin, linezolid and cefdinir to continue for another five days. She was thus transferred into the behavioral health unit and [facility] yesterday. The patient continues to have a depressed mood and s uicidal ideation. Currently denied any concerns or complaints at the moment. She denied any further episodes of hemoptysis, shortness of breath, chest pain, palpitations, nausea or vomiting. ASSESSMENT The patient was interviewed in observation room. The patient was actively ambulating in hallway. The patient endorses "I am just really upset I just think those places really denied me due to my medical condition, cystic fibrosis" "I am waiting my social work professor whole she follows through and get back to me like she said she was going to do." "She told me she would help me with housing." Denies SI. Denies HI. Denies AVH. The patient endorses adequate sleep and food intake. The patient is stable no acute distress noted. The patient presents as anxious, cooperative, engaged during session. The patient appears to be better no worsening mental health symptoms. The patient does seem to be a little anxious about returning home and that her SW as not gotten back to her about housing. Per staff report patient is medication compliant. Per staff report no abnormal behaviors. Will continue daily assessment and adjusting treatment as needed. Closely monitor behavior and response to medication during hospitalization. Appearnace: Other Speech: Pressured Eye Contact: Avoidant Motor Activity: Normal Affect: Full Mood: Irritable Orientation Impairment: None Memory Impairment: None Attention: Normal Hallucinations: None Other: None Suicidality: None Homicidality: None Delusions: None Behavior: Cooperative Insight: Poor Judgment: Fair Treatment REMERON 30 MG P.O. Q.H.S. BUSPAR 15 MG PO TID VENLAFAXINE 225 MG P.O. DAILY TRAZODONE 50 MG P.O. Q.6 PRN THORAZINE 50 MG P.O. Q.6 PRN BENADRYL 50 MG P.O. Q.6 PRN HYDROXYZINE 50 MG P.O. Q.6 PRN VOLUNTARY Monitoring by Staff, Milieu, Group, and Individual counseling as needed -- According to the [place] Suicide Assessment the above named patient is on Q15 MINUTE CHECKS. Total time spent 30 minutes on REVIEW OF Clinical notes [X ] RN notes [X] PCT documentation [X] SW notes Labs [ X] Medications [X] Care trends/care activity [X] Vitals [X] DISCUSSION WITH life skills coach [X] Staff SW Treatment Team [X] Voice recognition software may have been used to dictate this note. There may be errors due to use of such software. Reporting of serious errors is appreciated. Discharge UNSURE AT THIS TIME. DISCHARGE HOME ONCE STABLE. POSSIBLE DISCHARGE HOME MONDAY OR MONDAY CODING VISIT-PSYCHIATRY Date of Service: Jun 24, 2025 Billing Provider: TANYA DARDEN APRN Psych Common Visit Codes: [id number] INP/OBS CARE(Mod) TANYA DARDEN APRN Jun 24, 2025 16:16
--- NOTE | 2025-06-24 18:41 | PROGRESS NOTE- Residence ---
Progress Note - Resident Providers to CC Resident Creating Document: BRENNAN MAYS, YAN ~ Antibiotic Timeout Antibiotic Ordered?: No Subjective Patient seen and examined at the bedside today. The patient stated that she is doing well. Denied any further more episodes of shortness of breaths or any further episodes of hemoptysis. Denied any other concerns or complaints. Objective Vital Signs Date Time Temp Pulse Resp B/P (MAP) Pulse Ox O2 Delivery O2 Flow Rate FiO2 06/24/25 12:30 91 115/77 (90) 06/24/25 10:41 16 Room Air 0.0 06/24/25 10:31 98 21 06/24/25 08:00 97.8 General: Awake and Alert, no acute distress. HEENT: Conjunctiva pink, Sclera clear, Mucus Membranes moist. Neck: Supple without masses and tenderness. Resp: Unlabored. Lungs clear to auscultation bilaterally. Heart: Regular Rate and rhythm, normal S1 and S2 without murmur, rub or gallop. Abdomen: Soft and non tender no organomegaly Extremities: No cyanosis,clubbing or edema. Skin: Warm and Dry. Neurology: No focal motor or sensory deficits. Assessment Assessment 35-year-old female patient admitted to mental health unit due to suicidal ideation. Plan Plan Major depressive disorder Suicidal ideation Currently on buspirone, chlorpromazine, hydroxyzine, trazodone, venlafaxine. Management as per the psychiatrist. Hemoptysis-resolved Bronchiectasis Exacerbation of cystic fibrosis-resolved History of pulmonary embolism The patient recently finished a course of levofloxacin, linezolid and cefdinir as per pulmonology recommendations. Dornase edi daily. Albuterol q.6h PRN. No recent hemoptysis reported. Pancreatic insufficiency secondary to cystic fibrosis Prediabetes A1c 6.1 Continue Creon. Sinus tachycardia: Continue propranolol 10 mg t.i.d. hold if heart rate is less than 65 beats per minute. Disposition: Hospitalist team will continue to follow the patient during the course of the hospitalization. Brennan Mays MD Internal Medicine Resident, PGY-3 Date of Service: Jun 24, 2025 Billing Provider: LALY RODRIGUEZ MD, SURYA PRATIK, YAN Jun 24, 2025 18:41
[2025-06-25] VITALS (7 sets, daily range): BP systolic 119–140; BP diastolic 79–83; PULSE 94–107; RESP 14–18; TEMP 97.6–99.1; O2SAT 95–100
--- NOTE | 2025-06-25 12:57 | PROGRESS NOTE ---
Progress Note Dictate Providers to CC ~ Central Line/PICC still needed: N\\A Antibiotic Ordered?: No MRSA Education MRSA Education Provided to pt: No Objective Vitals Vital Signs Date Time Temp Pulse Resp B/P (MAP) Pulse Ox O2 Delivery O2 Flow Rate FiO2 06/25/25 10:46 96 16 Room Air 0.0 06/25/25 10:45 98 21 06/25/25 08:00 97.6 140/83 (102) Problem\\Assessment\\Plan Problems/Diagnosis: (1) MDD (major depressive disorder), recurrent episode, severe (2) Suicidal ideation (3) Anxiety disorder (4) Personality disorder Psychiatrist's Progress Note Date of Service: Jun 25, 2025 Notes CHART REVIEW 35-year-old female with past medical history of cystic fibrosis, major depressive disorder is admitted in the center of Behavioral Health at [facility] for major depressive disorder and suicidal ideation. The patient was recently treated in the hospital for bronchiectasis and hemoptysis secondary to her cystic fibrosis exacerbation. Braze Operator at [facility]-Dr. Gloria and the crane helper at [facility] cystic fibrosis clinic at [place] Dr. Shelton. As per the crane helper recommendation the patient was treated in the hospital with a broad-spectrum IV antibiotics-IV cefepime, levofloxacin and vancomycin. The Infectious Disease specialist were also consulted during her hospitalization. The patient's condition improved significantly during the hospitalization and was cleared for evaluation by the psychiatrist for admission in the Behavioral Health unit. Her antibiotics were transitioned to p.o. levofloxacin, linezolid and cefdinir to continue for another five days. She was thus transferred into the behavioral health unit and [facility] yesterday. The patient continues to have a depressed mood and suicidal ideation. Currently denied any concerns or complaints at the moment. She denied any further episodes of hemoptysis, shortness of breath, chest pain, palpitations, nausea or vomiting. ASSESSMENT The patient was interviewed in observation room with social services coordinator Chyna present. The patient was actively standing in hallway talking on telephone. The patient endorses "I am not good." "I am really depressed about my living situation with with my parents, I have nowhere to go." The patient was informed she will be discharging back home with her parents and her father, Pankaj agreed she can return home. The patient is going on and on about how her peers were getting accepted to outside facilities and she was denied. The patient was informed we have no control of Denies SI. Denies HI. Denies AVH. The patient endorses adequate sleep and food intake. The patient is stable no acute distress noted. The patient presents as less anxious, cooperative, engaged during session. The patient was informed she will be discharged home on Monday with provided transportation. Discussion about [facility], whom can provide transportation so that she can get out of the house and participate in some activities. The patient was encouraged to get out and make new friends, find new hobbies and activities to participate in. Per staff report patient is medication compliant. Per staff report no abnormal behaviors. Will continue daily assessment and adjusting t reatment as needed. Closely monitor behavior and response to medication during hospitalization. Appearnace: Other Speech: Normal Eye Contact: Normal Motor Activity: Normal Affect: Full Mood: Depressed Orientation Impairment: None Memory Impairment: None Attention: Normal Hallucinations: None Other: None Suicidality: None Homicidality: None Delusions: None Behavior: Cooperative Insight: Fair Judgment: Fair Treatment REMERON 30 MG P.O. Q.H.S. BUSPAR 15 MG PO TID VENLAFAXINE 225 MG P.O. DAILY TRAZODONE 50 MG P.O. Q.6 PRN THORAZINE 50 MG P.O. Q.6 PRN BENADRYL 50 MG P.O. Q.6 PRN HYDROXYZINE 50 MG P.O. Q.6 PRN VOLUNTARY Monitoring by Staff, Milieu, Group, and Individual counseling as needed -- According to the [place] Suicide Assessment the above named patient is on Q15 MINUTE CHECKS. Total time spent 25 minutes on REVIEW OF Clinical notes [X ] RN notes [X] PCT documentation [X] SW notes Labs [ X] Medications [X] Care trends/care activity [X] Vitals [X] DISCUSSION WITH wind turbine installer [X] Staff SW Treatment Team [X] Voice recognition software may have been used to dictate this note. There may be errors due to use of such software. Reporting of serious errors is appreciated. Discharge UNSURE AT THIS TIME. DISCHARGE HOME ONCE STABLE. POSSIBLE DISCHARGE HOME MONDAY CODING VISIT-PSYCHIATRY Date of Service: Jun 25, 2025 Billing Provider: TANYA DARDEN APRN Psych Common Visit Codes: [id number] INP/OBS CARE(Low) TANYA DARDEN APRN Jun 25, 2025 12:57
[2025-06-26] VITALS (7 sets, daily range): BP systolic 97–123; BP diastolic 56–84; PULSE 97–118; RESP 12–20; TEMP 98.5–99.3; O2SAT 97–100
--- NOTE | 2025-06-26 14:13 | PROGRESS NOTE ---
Progress Note Dictate Providers to CC ~ Central Line/PICC still needed: N\\A Antibiotic Ordered?: No MRSA Education MRSA Education Provided to pt: No Objective Vitals Vital Signs Date Time Temp Pulse Resp B/P (MAP) Pulse Ox O2 Delivery O2 Flow Rate FiO2 06/26/25 12:20 118 16 123/84 (97) 06/26/25 09:01 Room Air 0.0 06/26/25 09:01 98 21 06/26/25 07:42 98.5 Problem\\Assessment\\Plan Problems/Diagnosis: (1) MDD (major depressive disorder), recurrent episode, severe (2) Suicidal ideation (3) Anxiety disorder (4) Personality disorder Psychiatrist's Progress Note Date of Service: Jun 26, 2025 Notes CHART REVIEW 35-year-old female with past medical history of cystic fibrosis, major depressive disorder is admitted in the center of Behavioral Health at [facility] for major depressive disorder and suicidal ideation. The patient was recently treated in the hospital for bronchiectasis and hemoptysis secondary to her cystic fibrosis exacerbation. Reports Analysis Manager at [facility]-Dr. Gloria and the sustainability project manager at [facility] cystic fibrosis clinic at [place] Dr. Shelton. As per the sustainability project manager recommendation the patient was treated in the hospital with a broad-spectrum IV antibiotics-IV cefepime, levofloxacin and vancomycin. The Infectious Disease specialist were also consulted during her hospitalization. The patient's condition improved significantly during the hospitalization and was cleared for evaluation by the psychiatrist for admission in the Behavioral Health unit. Her antibiotics were transitioned to p.o. levofloxacin, linezolid and cefdinir to continue for another five days. She was thus transferred into the behavioral health unit and [facility] yesterday. The patient continues to have a depressed mood and suicidal ideation. Currently denied any concerns or complaints at the moment. She denied any further episodes of hemoptysis, shortness of breath, chest pain, palpitations, nausea or vomiting. ASSESSMENT The patient was interviewed in observation room with tootie Mejia. The patient was actively standing in hallway talking on telephone. The patient endorses "Not good." "I am don't feel good mentally." My mental health has not improved." "You guys are sending me home with my parents and I do not want to go there." The patient was informed she has met criteria to be discharged home. The was informed to can be discharged to the [place] if she was not wanting to return home. The was informed she has appointments set up with her therapist and [facility] for her mental health needs. [facility] we will be picking the patient up at 9:00 a.m. tomorrow. Transportation and return home was confirmed with her father, Pankaj. Denies HI. Denies AVH. The patient endorses adequate sleep and food intake. The patient is stable no acute distress noted. The patient presents as calm, cooperative, angry, and disengaged during session. Despite the patient endorsing she is not good and does not feel good mentally the patient is stable and is ready for discharge. The patient and her father hearing was able to formulate a safe plan for discharge. The patient has shown significant improvement since admission. Per staff report patient is medication compliant. Per staff report no abnormal behaviors. Will continue daily assessment and adjusting treatment as needed. Closely monitor behavior and response to medication during hospitalization. Collateral was received from patient's father Pankaj, with patient's consent. Pankaj confirmed he is aware the patient will be returning home tomorrow. Pankaj endorses that the patient's mother will be visiting the patient tonight and gathering some belongings before her return home. Speech: Other (CIRCUMSTANTIAL) Eye Contact: Other (INTERMITTENT) Motor Activity: Normal Affect: Full Orientation Impairment: None Memory Impairment: None Attention: Normal Hallucinations: None Other: None Suicidality: None Homicidality: None Delusions: None Behavior: Cooperative Insight: Fair Judgment: Fair Treatment REMERON 30 MG P.O. Q.H.S. BUSPAR 15 MG PO TID VENLAFAXINE 225 MG P.O. DAILY TRAZODONE 50 MG P.O. Q.6 PRN THORAZINE 50 MG P.O. Q.6 PRN BENADRYL 50 MG P.O. Q.6 PRN HYDROXYZINE 50 MG P.O. Q.6 PRN VOLUNTARY Monitoring by Staff, Milieu, Group, and Individual counseling as needed -- According to the [place] Suicide Assessment the above named patient is on Q15 MINUTE CHECKS. Total time spent 25 minutes on REVIEW OF Clinical notes [X ] RN notes [X] PCT documentation [X] SW notes Labs [ X] Medications [X] Care trends/care activity [X] Vitals [X] DISCUSSION WITH linux system engineer [X] Staff SW Treatment Team [X] Voice recognition software may have been used to dictate this note. There may be errors due to use of such software. Reporting of serious errors is appreciated. Discharge UNSURE AT THIS TIME. DISCHARGE HOME ONCE STABLE. POSSIBLE DISCHARGE HOME MONDAY CODING VISIT-PSYCHIATRY Date of Service: Jun 26, 2025 Billing Provider: TANYA DARDEN APRN Psych Common Visit Codes: [id number] INP/OBS CARE(Low) TANYA DARDEN APRN Jun 26, 2025 14:13
--- NOTE | 2025-06-26 19:19 | PROGRESS NOTE- Residence ---
Progress Note - Resident Providers to CC Resident Creating Document: LIANE SILVEIRA, YAN ~ Antibiotic Timeout Antibiotic Ordered?: No Subjective The patient was seen and examined at bedside today. She said she is doing well medically but not mentally. She is coughing with sputum production. Objective Vital Signs Date Time Temp Pulse Resp B/P (MAP) Pulse Ox O2 Delivery O2 Flow Rate FiO2 06/26/25 12:20 118 16 123/84 (97) 06/26/25 09:01 Room Air 0.0 06/26/25 09:01 98 21 06/26/25 07:42 98.5 General: Awake and Alert, no acute distress. HEENT: Conjunctiva pink, Sclera clear, Mucus Membranes moist. Neck: Supple without masses and tenderness. Resp: Unlabored. Lungs clear to auscultation bilaterally. Heart: Regular Rate and rhythm, normal S1 and S2 without murmur, rub or gallop. Abdomen: Soft and non tender no organomegaly Extremities: No cyanosis,clubbing or edema. Skin: Warm and Dry. Neurology: No focal motor or sensory deficits. Assessment Assessment A 35-year-old female patient admitted to mental health unit due to suicidal ideation. Plan Plan Major depressive disorder Suicidal ideation Management as per the psychiatrist. Hemoptysis-resolved Bronchiectasis Exacerbation of cystic fibrosis-resolved History of pulmonary embolism The patient recently finished a course of levofloxacin, linezolid and cefdinir as per pulmonology recommendations. Dornase edi daily. Albuterol q.6h PRN. No recent hemoptysis reported. Pancreatic insufficiency secondary to cystic fibrosis Prediabetes A1c 6.1 Continue Creon. Sinus tachycardia Continue propranolol 10 mg t.i.d. hold if heart rate is less than 65 beats per minute. Disposition: Hospitalist team will continue to follow the patient during the course of the hospitalization. Liane Silveira MD Internal Medicine Resident, PGY-2 Date of Service: Jun 26, 2025 Billing Provider: LALY RODRIGUEZ MD, SOWMYA MANJARI, RES Jun 26, 2025 19:19
[2025-06-27 07:00] VITALS: RESP 16; O2SAT 96
--- NOTE | 2025-06-27 07:00 | DISCHARGE SUMMARY ---
Discharge Summary Providers to CC ~ Discharge Summary Admission Diagnosis: MDD. SUICIDAL IDEATION. ANXIETY DISORDER. PERSONALITY DISORDER Hospital Course DATE OF ADMISSION: DATE OF DISCHARGE: Discharge Diagnosis\\Comment: MDD. SUICIDAL IDEATION. ANXIETY DISORDER. PERSONALITY DISORDER Operations\\Procedures: NONE Consultants: MEDICAL TEAM Complications: NONE Condition on DC: Stable 2 or more antipsychotic used: No 2/more antipsychotic addressed: No Does Patient smoke: No Smoking education given.: No New Medications: Buspirone HCl (Buspirone HCl) 15 Mg Tablet 15 MG PO TID for 14 Days, #42 TAB Mirtazapine (Mirtazapine) 15 Mg Tablet 30 MG PO HS for 14 Days, #28 TAB Propranolol Hcl* (Inderal*) 10 Mg Tablet 10 MG PO TID for 14 Days, #42 TAB Venlafaxine Hcl (Venlafaxine Hcl Er) 75 Mg Cap.sr.24h 225 MG PO DAILY for 14 Days, #42 CAP.SR Continued Medications: Albuterol Sulfate Nebs* (Proventil Nebs*) 2.5 Mg/0.5 Ml Vial.neb 2.5 MG IH Q6H PRN PRN for SOB or wheezing, VIAL Beta-Carotene (Beta Carotene) 7,500 Mcg (00013 Unit) Capsule 1 CAP PO DAILY Cetirizine Hcl (Zyrtec) 10 Mg Capsule 1 CAP PO HS, CAP Docusate Sodium (Colace) 100 Mg Capsule 1 CAP PO BID, CAP Dornase Chris (Pulmozyme) 1 Mg/1 Ml Solution 2.5 MG NEB DAILY Lactobacillus Rhamnosus (Culturelle) 10 Billion Cell Capsule 1 CAP PO BID for 30 Days, #30 CAP 0 Refills Linezolid (Linezolid) 600 Mg Tablet 1 TAB PO Q12H for 10 Days, #20 TAB 0 Refills Lipase/Protease/Amylase (Finesse Gonzales 24,000 Units Capsule) 1 Each Capsule. 4 CAP PO TIDWM 4 CAPS PO TID WITH MEALS AND 2 CAPS PO BID WITH SNACK @1500 AND @2000 Lipase/Protease/Amylase (Finesse Gonzales 24,000 Units Capsule) 1 Each Capsule. 2 CAP PO BID@1500,@2000 WITH SNACKS Multivits,Ca,Minerals/Iron/Fa (Therapy M Tablet) 1 Each Tablet 1 EACH PO DAILY, TAB 9 MG-400MCG TABLET Discontinued Medications: Buspirone HCl (Buspirone HCl) 15 Mg Tablet 1 TAB PO TID, TAB Cefdinir (Cefdinir) 300 Mg Capsule 1 CAP PO Q12H for 7 Days, #14 CAP 0 Refills Ivacaftor (Kalydeco) 150 Mg Tablet 150 MG PO BID Levofloxacin (Levofloxacin) 750 Mg Tablet 1 TAB PO DAILY for 7 Days, #7 TAB Mirtazapine (Remeron) 15 Mg Tablet 15 MG PO HS Multivit,Calc,Mins/Iron/Folic (Therapeutic-M Tablet) 9 Mg Iron-400 Mcg Tablet 1 TAB PO DAILY Pediatric Multivit No.163/D3/K (Mvw Complete Form Multivi Sfgl) 750 Unit-500 Mcg Capsule 1 CAP PO BID Propranolol Hcl* (Inderal*) 10 Mg Tablet 10 MG PO TID for 15 Days, TAB Hold for heart rate less than 60 Propranolol Hcl* (Inderal*) 10 Mg Tablet 1 TAB PO TID, TAB Venlafaxine Hcl (Venlafaxine Hcl Er) 37.5 Mg Cap.sr.24h 1 CAP PO DAILY Venlafaxine Hcl (Venlafaxine Hcl Er) 150 Mg Cap.sr.24h 1 CAP PO DAILY Discharge Summary: CHART REVIEW 35-year-old female with past medical history of cystic fibrosis, major depressive disorder is admitted in the center of Behavioral Health at [facility] for major depressive disorder and suicidal ideation. The patient was recently treated in the hospital for bronchiectasis and hemoptysis secondary to her cystic fibrosis exacerbation. Director Call at [facility]-Dr. Gloria and the shredder/granulator operator at [facility] cystic fibrosis clinic at [place] Dr. Shelton. As per the shredder/granulator operator recommendation the patient was treated in the hospital with a broad-spectrum IV antibiotics-IV cefepime, levofloxacin and vancomycin. The Infectious Disease specialist were also consulted during her hospitalization. The patient's condition improved significantly during the hospitalization and was cleared for evaluation by the psychiatrist for admission in the Behavioral Health unit. Her antibiotics were transitioned to p.o. levofloxacin, linezolid and cefdinir to continue for a nother five days. She was thus transferred into the behavioral health unit and [facility] yesterday. The patient continues to have a depressed mood and suicidal ideation. Currently denied any concerns or complaints at the moment. She denied any further episodes of hemoptysis, shortness of breath, chest pain, palpitations, nausea or vomiting. Patient actively seen and examined on day of discharge 06/27/2025, by myself, ROLANDO Escobar. The patient is interviewed in observation room. The patie nt endorses "Okay." Denies SI. Denies HI. Denies AVH. Madelyn was able to formulate a safety plan which includes going to the emergency room if symptoms return or worsen. Call [phone] or [phone] for immediate assistance if necessary. During his hospital stay, Madelyn receive multidisciplinary treatment he adhered to her medication regimen and has been pleasant and cooperative. She denies any suicidal ideation (SI), homicidal ideation (HI), auditory/visual hallucination (HI). Staff has reported no behavioral issues, and the patient has been sleeping well, adequate food intake, with no mood or behavioral changes noted. The patient was E-Scribed a 14 day supply of medication preferred pharmacy. MENTAL STATUS EXAM APPEARANCE: APPROPRIATELY. DRESSED IN STREET CLOTHING. SPEECH: CIRCUMSTANCE EYE CONTACT: NORMAL AFFECT: CONGRUENT WITH MOOD MOOD: "OKAY" ORIENTATION IMPAIRMENT: NONE MEMORY IMPAIRMENT: NONE ATTENTION: NORMAL HALLUCINATIONS: NONE SUICIDALITY: NONE HOMICIDALITY: NONE DELUSIONS: NONE BEHAVIOR: COOPERATIVE JUDGMENT: FAIR INSIGHT: FAIR Continue Current Inpatient Psychotropic Regimen @ home Follow-Up with Psychiatric Provider Safety Plan Discussed DISCHARGE CONDITION: Her readiness for discharge is supported by his stable mental status, adherence to treatment, and proactive approach to managing her mental health. Denies SI. Denies HI. Denies A/V/H. The patient has been informed to continue follow-up care to ensure ongoing support and monitoring. Patient discharged to home. *Problems/Diagnosis: (1) MDD (major depressive disorder), recurrent episode, severe (2) Suicidal ideation (3) Anxiety disorder (4) Personality disorder Status: Chronic Total Time Spent on D/C: > 30 Minutes Counseling Services Smoking & Tobacco Cessation: N/A CODING VISIT-PSYCHIATRY Date of Service: Jun 27, 2025 Billing Provider: TANYA DARDEN APRN Psych Common Visit Codes: [id number] DISCH DAY >30min TANYA DARDEN APRN Jun 27, 2025 06:47
[2025-06-27] MEDS ORDERED: MIRT-87 PO (07:03)
[2025-06-27] MEDS ORDERED: VENL75CA61 PO (07:03)
[2025-06-27] MEDS ORDERED: BUS15T PO (07:03)
[2025-06-27] MEDS ORDERED: PROP10TA10 PO (07:07)
[2025-06-27 08:12] VITALS: BP 117/81; PULSE 96; RESP 16; TEMP 97.9; O2SAT 99
[2025-06-27 08:58] VITALS: PULSE 98; RESP 19; O2SAT 100
[2025-06-27 09:04] VITALS: PULSE 104; RESP 18
== END 2025-06-27 09:09 | disposition home or self-care (01) | DRG 885 ==
LOC: ADULT MH 00:36
PROVIDERS: ADMIT Psychiatry & Neurology Psychiatry; ATTEND Psychiatry & Neurology Psychiatry
PROC: GZHZZZZ Group Psychotherapy (ICD-10-PCS; principal; 2025-06-18)
PROC: GZ51ZZZ Individual Psychotherapy, Behavioral (ICD-10-PCS; 2025-06-18)
DX: F33.2 Major depressive disorder, recurrent severe without psychotic features (principal); R45.851 Suicidal ideations; E84.9 Cystic fibrosis, unspecified; R04.2 Hemoptysis; F60.9 Personality disorder, unspecified; R00.0 Tachycardia, unspecified; F41.9 Anxiety disorder, unspecified; J47.9 Bronchiectasis, uncomplicated; R73.03 Prediabetes; Z79.899 Other long term (current) drug therapy
CPT/HCPCS: 94640; 94760